=== PATIENT | female | born 1945 | race Caucasian/White ===

== ENCOUNTER → 2017-12-09 | Outpatient (CLI) | payer OTHER ==
[~2017-12-09] MED LIST: ATV/1 PO; CHOL100010 PO; FLUOXETINE 20 MG PO; VALA1TAB PO
== END | disposition home or self-care (01) ==
LOC: C.LABSPEC 17:19
PROVIDERS: ATTEND Obstetrics & Gynecology
DX: R82.90 Unspecified abnormal findings in urine (principal)

== ENCOUNTER 2023-09-12 15:38 | Inpatient (IN) ==
--- OUTSIDE RECORDS SUMMARY | 2023-09-12 15:46 | External Medical Summary | Summary of Care ---
Author Name Unknown Organization [facility] Address [address] [place] [address] Phone [phone] Care Team Providers Care Non Clinical Advisor Name Role Phone Radha Infante MD Primary Care Prov ider Reason for Visit * Reason Onset Date Comments Appointment 08/29/2023 Return in about 4 weeks (around 09/26/2023) for Return with AP, Return with Physician. AND MRI - [place] Encounter Details Date Type Department Care Team (Late st Contact Info) Description 08/29/2023 Telephone Family [address] [phone] Radha Infante MD [address] [place] [address] [place] [phone] Appointment (Return in about 4 weeks (arou... Allergies Active Allergy Reactions Criticality Noted Date Comments Lorazepam 02/10/2016 Went off too quick and caused pt to go to ED Sertraline 11/27/2001 rash documented as of this encounter (statuses as of 08/30/2023) Medications Medication Sig Dispensed Refills Start Date End Date Status Cholecalciferol (VITAMIN D) 50 MCG (1999 UT) Tablet Take 2,000 Units by mouth daily. 0 Active hydrOXYzine HCl 25 MG Oral TabletIndications:An xiety attack Take one every 6 hours as needed for panic 40 Tablet 2 12/21/2022 Active valACYclovir HCl 1 GM Oral Tablet (Valtrex)Indications :HSV-2 (herpes simplex virus 2) infection Take 1 Tablet by mouth in the morning. 30 Tablet 5 12/21/2022 Active FLUoxetine HCl 20 MG Oral Capsule (PROzac)Indications: Adjustment disorder with depressed mood Take 1 capsule by mouth in the morning 90 Capsule 1 07/14/2023 Active Baclofen 10 MG Oral Tablet (Lioresal)Indication s:Back pain of lumbar region with sciatica Take 1 Tablet by mouth at bedtime as needed for Headache. 10 Tablet 0 08/29/2023 Active documented as of this encounter (statuses as of 08/30/2023) Active Problems Problem Noted Date Diagnosed Date CKD (chronic kidney disease), stage II Overview: EGFR 62 Ganglion cyst of dorsum of left wrist 01/03/2019 Atopic neurodermatitis 10/09/2010 BMI 29.0-29.9,adult 07/14/2009 Overview: 174 Vitamin D deficiency 03/25/2009 Overview: Vitamin D 22.5 Senile osteoporosis 12/05/2008 ADVANCE DIRECTIVE INFORMATION 04/05/2006 Overview: No, Advance Directive brochure given to patient. Mixed dyslipidemia 02/12/2005 Overview: chol 232,hdl 53, ldl 154, trig 126 ADJ DISORDER W/DEPRES MOOD 02/08/2005 Mitral valve disorder 02/08/2005 Sensorineural hearing loss Rosacea HSV-2 (herpes simplex virus 2) infection Acquired hypothyroidism Chronic reflux esophagitis documented as of this encounter (statuses as of 08/30/2023) Resolved Problems Problem Noted Date Diagnosed Date Resolved Date Dermatitis 08/15/2012 09/25/2015 History of tobacco use 01/18/201105/23 NONSPECIF SKIN ERUPT NEC 04/03/201012/2015 PRURITIC DISORDER NOS 04/03/20102015 Dyslipidemia, goal to be determined 04/02/2009 01/18/2011 Overview: Per Lipid Taxonomy. chol 232,hdl 53, ldl 154, trig 126 Dermatitis 04/16/2008 04/03/2010 Mixed dyslipidemia 02/12/2005 9 Overview: Per Lipid Taxonomy. chol 232,hdl 53, ldl 154, trig 126 Dyslipidemia, goal to be determined 02/08/2005 07/09/2008 Tobacco use disorder 04/19/2003 011 Obesity, BMI not known 07/14 Overview: Per Obesity Taxonomy Hematuria, microscopic 05/23 Herpes simplex without menti on of complication 06/24/2011 documented as of this encounter (statuses as of 08/30/2023) Immunizations Name Administration Dates Next Due COVID-19 mRNA, LNP-s, No Pre serve, 2-Dose Series ([employer]) 09/11/2020,08/21/2020 documented as of this encounter Social History Tobacco Use Types Packs/Day Years Used Date Smoking Tobacco: Former Cigarettes 0.5 48.3 0 09/13/1968 - 12/17/2016 Smokeless Tobacco: Never Alcohol Use Standard Drinks/Week Comments Yes 0 (1 standard drink = 0.6 oz pur e alcohol) on occasion PHQ-2 Answer Date Recorded PHQ-2 Score -1 01/06/2020 Sex and Gender Information Value Date Recorded Sex Assigned at Not on file Gender Identity Not on file Sexual Orientation Not on file Job Start Date Occupation Industry Not on file Not on file Not on file documented as of this encounter Miscellaneous Notes * Telephone Encounter - Kavon Mclaughlin OSA - 08/30/2023 8:46 AM EDT MRI L SPINE, NO AUTH NEEDED. Pt is scheduled at [address] [place] in open unit on Tuesday09/05/2023 at 4:45 pm arrival, for a 5:00 scan. I also made pt's next appt w/ BLANQUITA. I called pt and left message on her vm to call me back. I faxed the order to [address] * Telephone Encounter - Kavon Mclaughlin OSA - 08/29/2023 5:27 PM EDT Pt declined to make f/u appt at time of check out. She thought Dr. JUARES wanted to see her after the MRI and she doesn't know when that is until I reach [place] documented in this encounter Plan of Treatment Upcoming Encounters Date Type Department Care Team (Late st Contact Info) Description 09/27/2023 10:20 AM EDT Office Visit Family Medicine [address] [place] [phone] Radha Infante MD [address] [place] [address] [place] [phone] 07/10/2024 1:30 PM EDT Imaging Radiology [address] [place] [address] Health Maintenance Due Date Last Done Comments DTaP,Tdap,and Td Vaccines (1 - Tdap) 09/13/1966 Zoster Vaccines (1 of 2) 09/13/1997 DXA Scan 12/05/2010 12/05/2008 Pneumococcal Vaccine: 65+ Years (1 of 1 - PCV) 09/13/2012 *BISPHONATE OR OTHER ACCEPTABLE MEDICATION NEEDED FOR OSTEOPOROSIS (REFER TO SMARTSET #1146) 04/19/2014 Depression Screening 01/01/2021 01/02/2020 COVID-19 Vaccine ( season) 2022 04/01/2021, 09/11/2020, 08/21/2020, Additional history exists Influenza Vaccine (FLU shot) (Season Ended) 2023 Lung Cancer Screening Completed 05/25/2018 VITAMIN D LEVEL ONCE IN A LIFETIME-USE SMARTSET# [id number] Completed 11/24/2020, 05/23/2018, 06/22/2013, Additional history exists GARDASIL-HPV IMMUNIZATION SERIES Aged Out No longer eligible based on patient's age to complete this topic Hepatitis B Aged Out No longer eligi ble based on patient's age to complete this topic MENINGOCOCCAL (MENACTRA/MENVEO) Aged Out No longer eligible based on patient's age to complete this topic documented as of this encounter Medical Devices Not on filedocumented as of this encounter Care Teams Non Clinical Advisor Relationship Specialty Start Date End Date Radha Infante MD [address] [place] [address] [place] [phone] PCP - General Family Medicine 08/29/23 08/29/23 documented as of this encounter
--- OUTSIDE RECORDS SUMMARY | 2023-09-12 15:46 | External Medical Summary | Summary of Care ---
Author Name Unknown Organization [facility] Address [address] [place] [address] Phone [phone] Care Team Providers Care Material Handling Crew Supervisor Name Role Phone Radha Infante MD Primary Care Prov ider Reason for Visit * Reason Onset Date Comments Appointment 08/29/2023 Return in about 4 weeks (around 09/26/2023) for Return with AP, Return with Physician. AND MRI - [place] Encounter Details Date Type Department Care Team (Late st Contact Info) Description 08/29/2023 Telephone Family [address] [phone] Radha Infante MD [address] [place] [address] [place] [phone] Appointment (Return in about [...] trig 126 Dermatitis 04/16/2008 04/03/2010 Mixed dyslipidemia 02/12/200504/02/ 9 Overview: Per Lipid Taxonomy. chol 232,hdl [...] mRNA, LNP-s, No Pre serve, 2-Dose Series ([employer]) 09/11/2020,08/21/2020 documented as of this encounter Social [...] know when that is until I reach [place] documented in this encounter Plan of Treatment Upcoming Encounters Date Type Department Care Team (Late st Contact Info) Description 07/10/2024 1:30 PM EDT Imaging Radiology [address] [place], [place] [address] Health Maintenance Due Date Last Done Comments [...] D LEVEL ONCE IN A LIFETIME-USE SMARTSET# [id number] Completed 11/24/2020, 05/23/2018, 06/22/2013, Additional history exists [...] filedocumented as of this encounter Care Teams Material Handling Crew Supervisor Relationship Specialty Start Date End Date Radha Infante MD [address] [place] [address] [place] [phone] PCP - General Family Medicine 08/29/23 08/29/23 documented as of this encounter
--- OUTSIDE RECORDS SUMMARY | 2023-09-12 15:46 | External Medical Summary | Summary of Care ---
Author Name Unknown Organization [facility] Address [address] [place] [address] Phone [phone] Care Team Providers Care Dough Panner Name Role Phone Priscila Infante MD Primary Care Prov ider Reason for Referral * Precert (Within 10 days (routine)) - Authorized Specialty Diagnoses / Procedures Referred By Contac t Referred To Contact Radiology Diagnoses Back pain of lumbar region with sciatica Procedures MRI L SPINE WO CONTRAST Priscila Infante MD [address] [place] [address] [place] [phone] Referral ID Status Reason Start Date Expiration Date V isits Requested Visits Authorized [id number] Authorized 08/30/2023 999 999 Reason for Visit * Reason Comments NEW PATIENT Acute Encounter Details Date Type Department Care Team ([facility] st Contact Info) Description 08/29/2023 4:00 PM EDT Office Visit Family Medicine [address] [place] [phone] Priscila Infante MD [address] [place] [address] [place] [phone] Back pain of lumbar region with sciatica*; Mixed dyslipidemia; Senile osteoporosis; Vitamin D deficiency; Acquired hypothyroidism; CKD (chronic kidney disease), stage II; Encounter for long-term (current) use of medications Allergies Active Allergy Reactions Criticality Noted Date Comments Lorazepam 02/10/2016 Went off too quick and caused pt to go to ED Sertraline 11/27/2001 rash documented as of this encounter (statuses as of 08/29/2023) Medications Medication Sig Dispensed Refills Start Date End Date Status Cholecalciferol (VITAMIN D) 50 MCG (2000 UT) Tablet Take 2,000 Units by mouth daily. 0 Active hydrOXYzine HCl 25 MG Oral TabletIndication s:Anxiety attack Take one every 6 hours as needed for panic 40 Tablet 2 12/21/2022 Active valACYclovir HCl 1 GM Oral Tablet (Valtrex)Indicat ions:HSV-2 (herpes simplex virus 2) infection Take 1 Tablet by mouth in the morning. 30 Tablet 5 12/21/2022 Active FLUoxetine HCl 20 MG Oral Capsule (PROzac)Indicati ons:Adjustment disorder with depressed mood Take 1 capsule by mouth in the morning 90 Capsule 1 07/14/2023 Active Baclofen 10 MG Oral Tablet (Lioresal)Indica tions:Back pain of lumbar region with sciatica Take 1 Tablet by mouth at bedtime as needed for Headache. 10 Tablet 0 08/29/2023 Active Promethazine-DM 6.25-15 MG/5ML Oral Syrup TAKE ONE TEASPOONFUL (5ML) BY MOUTH 4 TIMES DAILY NEEDED FOR COUGH 180 mL 0 02/22/2023 4 Discontinue d(Patient preference/ discontinua tion) documented as of this encounter (statuses as of 08/29/2023) Active Problems Problem Noted Date Diagnosed Date CKD (chronic kidney disease), stage II 1 Overview: EGFR 62 Ganglion cyst of dorsum [...] as of this encounter (statuses as of 08/29/2023) Resolved Problems Problem Noted Date Diagnosed Date [...] as of this encounter (statuses as of 08/29/2023) Immunizations Name Administration Dates Next Due COVID-19 mRNA, LNP-s, No Pre serve, 2-Dose Series ([employer]) 09/11/2020,08/21/2020 documented as of this encounter Social [...] on file documented as of this encounter Last Filed Vital Signs Vital Sign Reading Time Taken Comments Blood Pressure 128/74 08/29/2023 3:52 PM EDT Pulse 68 08/29/2023 3:52 PM EDT Temperature 37.3 C (99.1 F) 08/29/2023 3:52 PM ED T Respiratory Rate 18 08/29/2023 3:52 PM EDT Oxygen Saturation 93% 08/29/2023 3:52 PM EDT Inhaled Oxygen Concentration - - Weight 78.5 kg (173 lb) 08/29/2023 3:52 PM EDT Height 162.6 cm (5' 4") 08/29/2023 3:52 PM EDT Body Mass Index 29.7 08/29/2023 3:52 PM EDT documented in this encounter Progress Notes * David Dowd, Priscila Abrams MD - 08/29/2023 4:00 PM EDT Subjective Jennie Gil is a 77 year old female. Chief Complaint Patient presents with NEW PATIENT Acute HPI: Here today for acute visit for back pain. -Low back pain. Was seen at [facility] ER in June 2023 for back pain and had a CT scan done which showedbulging disk, per patient. Was advised to contact PCP about MRI and follow up. Today c/o pain in left lower back shooting to her left hip and down the leg. Also c/o pain and numbness in the left lower leg and foot. Denies loss of strength. Has had a couple urine incontinence episodes, but not persistent and denies numbness of the "saddle" region. Was given Medrol dosepak in the ER, helped minimally. -Dyslipidemia. Last LDL 140. ASCVD risk 19%. -Osteoporosis/Vit D def. Last Vit D 43. Last DEXA 2008, due for repeat. -Hypothyroid. TSH 3.9 on last labs. Prev: Due for vaccines, DEXA, labs. PMH: Patient Active Problem List Diagnosis Code ADJ DISORDER W/DEPRES MOOD F43.21 Mitral valve disorder I05.9 ADVANCE DIRECTIVE INFORMATION Senile osteoporosis M81.0 Sensorineural hearing loss H90.5 Vitamin D deficiency E55.9 BMI 29.0-29.9,adult Z68.29 Atopic neurodermatitis L20.81 Mixed dyslipidemia E78.2 Rosacea L71.9 HSV-2 (herpes simplex virus 2) infection B00.9 Acquired hypothyroidism E03.9 Ganglion cyst of dorsum of left wrist M67.432 Chronic reflux esophagitis K21.00 CKD (chronic kidney disease), stage II N18.2 Current Outpatient Medications Medication Sig Dispense Refill Cholecalciferol (VITAMIN D) 50 MCG (2000 UT) Tablet Take 2,000 Units by mouth daily. hydrOXYzine HCl 25 MG Oral Tablet Take one every 6 hours as needed for panic 40 Tablet 2 valACYclovir HCl 1 GM Oral Tablet (Valtrex) Take 1 Tablet by mouth in the morning. 30 Tablet 5 FLUoxetine HCl 20 MG Oral Capsule (PROzac) Take 1 capsule by mouth in the morning 90 Capsule 1 Baclofen 10 MG Oral Tablet (Lioresal) Take 1 Tablet by mouth at bedtime as needed for Headache. 10 Tablet 0 No current facility-administered medications for this visit. Review of patient's allergies indicates: Allergen Reactions Lorazepam Went off too quick and caused pt to go to ED Sertraline [Sertraline] rash Objective BP 128/74 | Pulse 68 | Temp 37.3 C (99.1 F) | Resp 18 | Ht 1.626 m (5' 4") | Wt 78.5 kg (173 lb) | SpO2 93% | BMI 29.70 kg/m | BSA 1.88 m Physical Exam Constitutional: Appearance: Normal appearance. HENT: Head: Normocephalic and atraumatic. Cardiovascular: Rate and Rhythm: Normal rate and regular rhythm. Pulses: Normal pulses. Heart sounds: Normal heart sounds. Pulmonary: Effort: Pulmonary effort is normal. Breath sounds: Normal breath sounds. Abdominal: General: Abdomen is flat. Bowel sounds are normal. Palpations: Abdomen is soft. Musculoskeletal: General: Tenderness present. Normal range of motion. Cervical back: Normal range of motion. Right lower leg: Edema present. Left lower leg: Edema present. Comments: + left SI joint area ttp Trace bilat LE edema Skin: General: Skin is warm. Neurological: General: No focal deficit present. Mental Status: She is alert and oriented to person, place, and time. Sensory: No sensory deficit. Motor: No weakness. Gait: Gait abnormal. Deep Tendon Reflexes: Reflexes normal. Psychiatric: Mood and Affect: Mood normal. Behavior: Behavior normal. ASSESSMENT/PLAN: Back pain of lumbar region with sciatica (Primary) - MRI L SPINE WO CONTRAST; Future; Expected date: 08/30/2023 - Baclofen 10 MG Oral Tablet (Lioresal); Take 1 Tablet by mouth at bedtime as needed for Headache. Mixed dyslipidemia - COMPREHENSIVE METABOLIC PANEL; Future; Expected date: 08/29/2023 - LIPID PANEL WITH DIRECT LDL IF TG IS HIGH; Future; Expected date: 08/29/2023 Senile osteoporosis Vitamin D deficiency - 25-HYDROXY VITAMIN D; Future; Expected date: 08/29/2023 Acquired hypothyroidism - TSH WITH FREE T4 IF INDICATED; Future; Expected date: 08/29/2023 CKD (chronic kidney disease), stage II Encounter for long-term (current) use of medications Follow Up: Return in about 4 weeks (around 09/26/2023) for Return with AP, Return with Physician. | For: Return with AP, Return with Physician | Check-out note: Please request ER records from June 2023 from [facility] Schedule MRI at [facility] open MRI States she was advised by the ER physician not to do PT until she had the MRI completed Will schedule MRI and treat based on results. Suspect internal derangement of the spinal cord. Priscila Patel MD documented in this encounter Nursing Notes * Sue Reyes RN - 08/29/2023 3:52 PM EDT Acute visit. (Former Dr Valladares) Pt having a lot of low back pain. Pt was seen in [facility] ER in June or July for Back pain, they want her to get an MRI to see if she has a herniated disc. Pt wants an Open MRI documented in this encounter Miscellaneous Notes * Addendum Note - Priscila Infante MD - 08/29/2023 4:32 PM EDT Addended by: PRISCILA PATEL on: 08/29/2023 04:32 PM Modules accepted: Orders documented in this encounter Plan of Treatment Upcoming Encounters Date Type Department Care Team (Late st Contact Info) Description 07/10/2024 1:30 PM EDT Imaging Radiology [address] [place] [phone] Scheduled Orders Name Type Priority Associated Diagnoses Orde r Schedule COMPREHENSIVE METABOLIC PANEL Lab Routine Mixed dyslipidemia Expected: 08/29/2023 (Approximate), Expires: 08/28/2024 LIPID PANEL WITH DIRECT LDL IF TG IS HIGH Lab Routine Mixed dyslipidemia Expected: 08/29/2023, Expires: 08/28/2024 25-HYDROXY VITAMIN D Lab Routine Vitamin D deficiency Expected: 08/29/2023 (Approximate), Expires: 08/28/2024 TSH WITH FREE T4 IF INDICATED Lab Routine Acquired hypothyroidism Expected: 08/29/2023 (Approximate), Expires: 08/28/2024 MRI L SPINE WO CONTRAST Medical Imaging Routine Back pain of lumbar region with sciatica Expected: 08/30/2023, Expires: 09/28/2024 Health Maintenance Due Date Last Done Comments [...] D LEVEL ONCE IN A LIFETIME-USE SMARTSET# [id number] Completed 11/24/2020, 05/23/2018, 06/22/2013, Additional history exists [...] Not on filedocumented as of this encounter Visit Diagnoses Diagnosis Back pain of lumbar region with sciatica- Primary Mixed dyslipidemia Mixed hyperlipidemia Senile osteoporosis Vitamin D deficiency Unspecified vitamin D deficiency Acquired hypothyroidism Unspecified hypothyroidism CKD (chronic kidney disease), stage II Chronic kidney disease, Stage II (mild) Encounter for long-term (current) use of medications Encounter for long-term (current) use of other medications documented in this encounter Care Teams Dough Panner Relationship Specialty Start Date End Date Priscila Infante MD [address] [place] [address] [place] [phone] PCP - General Family Medicine 08/29/23 08/29/23 documented as of this encounter
--- OUTSIDE RECORDS SUMMARY | 2023-09-12 15:46 | External Medical Summary | Summary of Care ---
Author Name Unknown Organization [facility] Address [address] [facility] [address] Phone [phone] Care Team Providers Care Senior Manager Quality Assurance Name Role Phone Unavailable Primary Care Provider Unavailabl e Encounter Details Date Type Department Care Team ([facility] st Contact Info) Description 09/01/2023 Orders Only PATIENT PORTAL DO NOT DELETE THIS DEPT USED BY [place] [phone] Allergies Active Allergy Reactions Criticality Noted Date Comments Lorazepam 02/10/2016 Went off too quick and caused pt to go to ED Sertraline 11/27/2001 rash documented as of this encounter (statuses as of 09/01/2023) Medications Medication Sig Dispensed Refills Start Date [...] as of this encounter (statuses as of 09/01/2023) Active Problems Problem Noted Date Diagnosed Date [...] as of this encounter (statuses as of 09/01/2023) Resolved Problems Problem Noted Date Diagnosed Date [...] as of this encounter (statuses as of 09/01/2023) Immunizations Name Administration Dates Next Due COVID-19 mRNA, LNP-s, No Pre serve, 2-Dose Series ([employer]) 09/11/2020,08/21/2020 documented as of this encounter Social [...] on file documented as of this encounter Plan of Treatment Upcoming Encounters Date Type Department Care Team (Late st Contact Info) Description 09/27/2023 10:20 AM EDT Office Visit Family Medicine [address] [place] [phone] Radha Infante MD [address] [place] [address] [place] [phone] 07/10/2024 1:30 PM EDT Imaging Radiology [address] [place] [address] Health Maintenance Due Date Last Done Comments [...] D LEVEL ONCE IN A LIFETIME-USE SMARTSET# [id number] Completed 11/24/2020, 05/23/2018, 06/22/2013, Additional history exists [...]
--- OUTSIDE RECORDS SUMMARY | 2023-09-12 15:46 | External Medical Summary ---
Author Name Unknown Address Unknown Organization K01[place] [place] [address] [place] [address] Laboratory Report Ordering Provider Test Date Status CHRISS FRANCOIS 09/02/2023 08:39:33 Final Observation Date Value Abnormality Reference (Units ) Status TSH 09/02/2023 08:39:33 2.35 0.27-4.20 (uIU/mL) Final Performing Location [facility] - [address] [place] [address]
--- OUTSIDE RECORDS SUMMARY | 2023-09-12 15:46 | External Medical Summary | Summary of Care ---
Author Name Unknown Organization [facility] Address [address] [facility] [place] [address] Phone [phone] Care Team Providers Care Dentofacial Orthopedics Dentist Name Role Phone Unavailable Primary Care Provider Unavailabl e Encounter Details Date Type Department Care Team (Late st Contact Info) Description 08/31/2023 Orders Only Family Medicine [address] [phone] Radha Infante MD [address] [place] [address] [place] [phone] Allergies Active Allergy Reactions Criticality Noted Date Comments Lorazepam 02/10/2016 Went off too quick and caused pt to go to ED Sertraline 11/27/2001 rash documented as of this encounter (statuses as of 08/31/2023) Medications Medication Sig Dispensed Refills Start Date [...] as of this encounter (statuses as of 08/31/2023) Active Problems Problem Noted Date Diagnosed Date [...] as of this encounter (statuses as of 08/31/2023) Resolved Problems Problem Noted Date Diagnosed Date [...] as of this encounter (statuses as of 08/31/2023) Immunizations Name Administration Dates Next Due COVID-19 mRNA, LNP-s, No Pre serve, 2-Dose Series ([employer]) 09/11/2020,08/21/2020 documented as of this encounter Social [...] 10:20 AM EDT Office Visit Family Medicine [address] [place] [phone] Radha Infante MD [address] [place] [address] [place] [phone] 07/10/2024 1:30 PM EDT Imaging Radiology [address] [place] [address] Pending Results Name Type Priority Associated Diagnoses Date /Time CT ABD/PELVIS W IV AND W ORAL CONTRAST Medical Imaging Routine 06/27/2023 XR CHEST 1 VIEW Medical Imaging Routine 06/16 CHEMISTRY-OUTSIDE Lab Routine 024 Health Maintenance Due Date Last Done Comments [...] D LEVEL ONCE IN A LIFETIME-USE SMARTSET# [id number] Completed 11/24/2020, 05/23/2018, 06/22/2013, Additional history exists [...]
--- OUTSIDE RECORDS SUMMARY | 2023-09-12 15:46 | External Medical Summary | Summary of Care ---
Author Name Unknown Organization [facility] Address [address] [facility] [place] [address] Phone [phone] Care Team Providers Care Mill Representative Name Role Phone Unavailable Primary Care Provider Unavailabl e Encounter Details Date Type Department Care Team (Late st Contact Info) Description 09/08/2023 Orders Only Family Medicine [address] [phone] Radha Infante MD [address] [place] [address] [place] [phone] Back pain of lumbar region with sciatica Allergies Active Allergy Reactions Criticality Noted Date Comments Lorazepam 02/10/2016 Went off too quick and caused pt to go to ED Sertraline 11/27/2001 rash documented as of this encounter (statuses as of 09/08/2023) Medications Medication Sig Dispensed Refills Start Date End Date Status Cholecalciferol (VITAMIN D) 50 MCG (1999) Tablet Take 2,000 Units by mouth daily. Active hydrOXYzine HCl 25 MG Oral TabletIndications:An [...] bedtime as needed for Headache. 10 Tablet 08/29/2023 Active Atorvastatin Calcium 20 MG Oral Tablet (Lipitor) Take 1 Tablet by mouth in the morning. 90 Tablet 3 09/05/2023 Active documented as of this encounter (statuses as of 09/08/2023) Active Problems Problem Noted Date Diagnosed Date [...] as of this encounter (statuses as of 09/08/2023) Resolved Problems Problem Noted Date Diagnosed Date [...] as of this encounter (statuses as of 09/08/2023) Immunizations Name Administration Dates Next Due COVID-19 mRNA, LNP-s, No Pre serve, 2-Dose Series ([employer]) 09/11/2020,08/21/2020 documented as of this encounter Social [...] 10:20 AM EDT Office Visit Family Medicine [address] [place] [phone] Radha Infante MD [address] [place] [address] [place] [address] 07/10/2024 1:30 PM EDT Imaging Radiology [address] [place] [address] Health Maintenance Due Date Last Done Comments [...] D LEVEL ONCE IN A LIFETIME-USE SMARTSET# [id number] Completed 09/02/2023, 11/24/2020, 05/23/2018, Additional history exists GARDASIL-HPV IMMUNIZATION SERIES Aged [...] Not on filedocumented as of this encounter Procedures Procedure Name Priority Date/Time Associated Diagnosis Comments MRI L SPINE WO CONTRAST Routine 09/05/2023 Back pain of lumbar region with sciatica documented in this encounter Results * MRI L SPINE WO CONTRAST (09/05/2023) Anatomical Region Laterality Modality Vertebra, Lspine Other 09/05/2023 Radha Dowd MD RAD MRI-MR A documented in this encounter Visit Diagnoses Diagnosis Back pain of lumbar region with sciatica documented in this encounter
--- OUTSIDE RECORDS SUMMARY | 2023-09-12 15:46 | External Medical Summary | Summary of Care ---
Author Name Unknown Organization [facility] Address [address] [place] [address] Phone [phone] Care Team Providers Care Electronic News Gathering Editor Name Role Phone Priscila Infante MD Primary Care Prov ider Reason for Referral * Precert (Within 10 days (routine)) - Authorized Specialty Diagnoses / Procedures Referred By Contac t Referred To Contact Radiology Diagnoses Back pain of lumbar region with sciatica Procedures MRI L SPINE WO CONTRAST Priscila Infante MD [address] [place] [address] [place] [id number] Referral ID Status Reason Start Date Expiration Date V isits Requested Visits Authorized [id number] Authorized 08/30/2023 999 999 Reason for Visit * Reason Comments NEW PATIENT Acute Encounter Details Date Type Department Care Team ([facility] st Contact Info) Description 08/29/2023 4:00 PM EDT Office Visit Family Medicine [address] [place] [phone] Priscila Infante MD [address] [place] [address] [place] [phone] Back pain of lumbar region with sciatica*; [...] mRNA, LNP-s, No Pre serve, 2-Dose Series ([employer]) 09/11/2020,08/21/2020 documented as of this encounter Social [...] pain. -Low back pain. Was seen at [facility] ER in June 2023 for back pain [...] request ER records from June 2023 from [facility] Schedule MRI at [address] [...] low back pain. Pt was seen in [facility] ER in June or July for Back [...] Description 07/10/2024 1:30 PM EDT Imaging Radiology [address] [place] [address] Scheduled Orders Name Type Priority Associated Diagnoses [...] D LEVEL ONCE IN A LIFETIME-USE SMARTSET# [id number] Completed 11/24/2020, 05/23/2018, 06/22/2013, Additional history exists [...] medications documented in this encounter Care Teams Electronic News Gathering Editor Relationship Specialty Start Date End Date Priscila Infante MD [address] [place] [address] [place] [address] PCP - General Family Medicine 08/29/23 08/29/23 documented as of this encounter
--- OUTSIDE RECORDS SUMMARY | 2023-09-12 15:46 | External Medical Summary ---
Author Name Unknown Address Unknown Organization [id number]:LABORATORY [facility] [place] - [address] [facility] [address] Laboratory Report Ordering Provider Test Date Status CHRISS FRANCOIS 09/02/2023 08:39:33 Final Observation Date Value Abnormality Reference (Units ) Status BUN 09/02/2023 08:39:33 11 6-20 (mg/dL) Final Creatinine 09/02/2023 08:39:33 0.8 0.5-1.0 (mg/dL) Final Glomerular filtration rate/1.73 sq M.predicted [Volume Rate/Area] in Serum, Plasma or Blood by Creatinine-based formula (CKD-EPI) 09/02/2023 08:39:33 80 >=60 (mL/min) Final eGFR is calculated based on the CKD-EPI 2020 equation Sodium 09/02/2023 08:39:33 142 135-146 (m mol/L) Final Potassium 09/02/2023 08:39:33 4.3 3.5-5.1 (m mol/L) Final Cl 09/02/2023 08:39:33 102 98-107 (mm ol/L) Final CO2 09/02/2023 08:39:33 27 22-32 (mmo l/L) Final Anion gap 09/02/2023 08:39:33 13 7-15 (mmol /L) Final Glucose 09/02/2023 08:39:33 111 70-120 (mg /dL) Final Albumin 09/02/2023 08:39:33 4.6 3.8-5.0 (g /dL) Final AST (Aspartate aminotransferase) 09/02/2023 08:39:33 19 10-35 (U/L) Fin al Alk Phos 09/02/2023 08:39:33 113 35-130 (U/ L) Final Bilirubin, Total 09/02/2023 08:39:33 0.4 <=1 .2 (mg/dL) Final Calcium 09/02/2023 08:39:33 10.3 Above high normal 8. 4-10.2 (mg/dL) Final Protein 09/02/2023 08:39:33 7.0 6.0-8.3 (g /dL) Final ALT (Alanine aminotransferase) 09/02/2023 08:39:33 19 10-35 (U/L) Kenrick lizama Performing Location LABORATORY [facility] [place] - [address] [facility] [address]
--- OUTSIDE RECORDS SUMMARY | 2023-09-12 15:46 | External Medical Summary | Summary of Care ---
Author Name Unknown Organization [facility] Address [address] [facility] [place] [address] Phone [phone] Care Team Providers Care Account Support Manager Name Role Phone Unavailable Primary Care Provider Unavailabl e Reason for Visit * Reason Comments Outpatient Testing Encounter Details Date Type Department Care Team ([facility] st Contact Info) Description 09/02/2023 9:00 AM EDT Laboratory Laboratory [address] [place] [phone] [address] [place] [address] Mixed dyslipidemia; Vitamin D deficiency; Acquired hypothyroidism Allergies Active Allergy Reactions Criticality Noted Date Comments Lorazepam 02/10/2016 Went off too quick and caused pt to go to ED Sertraline 11/27/2001 rash documented as of this encounter (statuses as of 09/02/2023) Medications Medication Sig Dispensed Refills Start Date [...] as of this encounter (statuses as of 09/02/2023) Active Problems Problem Noted Date Diagnosed Date [...] as of this encounter (statuses as of 09/02/2023) Resolved Problems Problem Noted Date Diagnosed Date [...] as of this encounter (statuses as of 09/02/2023) Immunizations Name Administration Dates Next Due COVID-19 mRNA, LNP-s, No Pre serve, 2-Dose Series (DataPop) 09/11/2020,08/21/2020 documented as of this encounter Social [...] 10:20 AM EDT Office Visit Family Medicine [address] [place] [phone] Radha Infante MD [address] [place] [address] [place] [phone] 07/10/2024 1:30 PM EDT Imaging Radiology [address] [place] [address] Pending Results Name Type Priority Associated Diagnoses Date /Time COMPREHENSIVE METABOLIC PANEL Lab Routine Mixed dyslipidemia 09/02/2023 8:39 AM EDT LIPID PANEL WITH DIRECT LDL IF TG IS HIGH Lab Routine Mixed dyslipidemia 09/02/2023 8:39 AM EDT 25-HYDROXY VITAMIN D Lab Routine Vitamin D deficiency 09/02/2023 8:39 AM EDT TSH WITH FREE T4 IF INDICATED Lab Routine Acquired hypothyroidism 09/02/2023 8:39 AM EDT Health Maintenance Due Date Last Done Comments [...] D LEVEL ONCE IN A LIFETIME-USE SMARTSET# [id number] Completed 11/24/2020, 05/23/2018, 06/22/2013, Additional history exists [...] as of this encounter Visit Diagnoses Diagnosis Mixed dyslipidemia Mixed hyperlipidemia Vitamin D deficiency Unspecified vitamin D deficiency Acquired hypothyroidism Unspecified hypothyroidism documented in this encounter
--- OUTSIDE RECORDS SUMMARY | 2023-09-12 15:46 | External Medical Summary | Summary of Care ---
Author Name Unknown Organization [facility] Address [address] [place] [address] Phone [phone] Care Team Providers Care Facilities Maintenance Engineer Name Role Phone Radha Infante MD Primary Care Prov ider Reason for Visit * Reason Onset Date Comments Appointment 08/29/2023 Return in about 4 weeks (around 09/26/2023) for Return with AP, Return with Physician. AND MRI - [place] Encounter Details Date Type Department Care Team (Late st Contact Info) Description 08/29/2023 Telephone Family [address] [phone] Radha Infante MD [address] [place] [address] [place] [phone] Appointment (Return in about [...] mRNA, LNP-s, No Pre serve, 2-Dose Series ([facility]) 09/11/2020,08/21/2020 documented as of this encounter Social [...] Telephone Encounter - Kavon Mclaughlin OSA - 08/31/2023 10:29 AM EDT I spoke to Jennie, she is aware. She has the ph # to call to change if needed. * Telephone Encounter - Kavon Mclaughlin OSA - 08/30/2023 8:46 AM EDT MRI L SPINE, NO AUTH NEEDED. Pt is scheduled at [address] in open unit on Tuesday09/05/2023 at 4:45 pm arrival, for a 5:00 scan. I also made pt's next appt w/ KFCristi. I called pt and left message on her vm to call me back. I faxed the order to 1 * Telephone Encounter - Kavon Mclaughlin OSA - 08/29/2023 5:27 PM EDT Pt declined to make f/u appt at time of check out. She thought Dr. JUARES wanted to see her after the MRI and she doesn't know when that is until I reach [place] documented in this encounter Plan of Treatment Upcoming Encounters Date Type Department Care Team (Late st Contact Info) Description 09/27/2023 10:20 AM EDT Office Visit Family Medicine [address] [place] [phone] Radha Infante MD [address] [place] [address] [place] [address] 07/10/2024 1:30 PM EDT Imaging Radiology [address] [place] [address] Health Maintenance Due Date Last Done Comments [...] D LEVEL ONCE IN A LIFETIME-USE SMARTSET# [id number] Completed 11/24/2020, 05/23/2018, 06/22/2013, Additional history exists [...] filedocumented as of this encounter Care Teams Facilities Maintenance Engineer Relationship Specialty Start Date End Date Radha Infante MD [address] [place] [address] [place] [phone] PCP - General Family Medicine 08/29/23 08/29/23 documented as of this encounter"
--- OUTSIDE RECORDS SUMMARY | 2023-09-12 15:46 | External Medical Summary | Summary of Care ---
Author Name Unknown Organization [facility] Address [address] [place] [address] Phone [phone] Care Team Providers Care Toy Designer Name Role Phone Radha Infante MD Primary Care Prov ider Encounter Details Date Type Department Care Team ([facility] st Contact Info) Description 06/27/2023 Result Scan Unspecified Department <No scans attached> Allergies Active Allergy Reactions Criticality Noted Date [...] 0 Active hydrOXYzine HCl 25 MG Oral TabletIndications:Anx iety attack Take one every 6 hours as needed for panic 40 Tablet 2 12/21/2022 Active valACYclovir HCl 1 GM Oral Tablet (Valtrex)Indications: HSV-2 (herpes simplex virus 2) infection Take 1 Tablet by mouth in the morning. 30 Tablet 5 12/21/2022 Active documented as of this encounter (statuses [...] mRNA, LNP-s, No Pre serve, 2-Dose Series ([employer]) 09/11/2020,08/21/2020 documented as of this encounter Social [...] 10:20 AM EDT Office Visit Family Medicine [address] [place] [phone] Radha Infante MD [address] [place] [address] [place] [address] 07/10/2024 1:30 PM EDT Imaging Radiology [address] [place] [address] Health Maintenance Due Date Last Done Comments [...] D LEVEL ONCE IN A LIFETIME-USE SMARTSET# [id number] Completed 11/24/2020, 05/23/2018, 06/22/2013, Additional history exists [...] Procedure Name Priority Date/Time Associated Diagnosis Comments OUTSIDE LAB RESULTS 06/27/2023 RADIOLOGY SCANNED RESULT 06/27/2023 documented in this encounter Results * RADIOLOGY SCANNED RESULT (06/27/2023) 06/27/2023 No Physician Data Unknown DIAGNOSTIC RAD IOLOGY SERVICES * OUTSIDE LAB RESULTS (06/27/2023) 06/27/2023 No Physician Data Unknown LABORATORY documented in this encounter Care Teams Toy Designer Relationship Specialty Start Date End Date Rdaha Infante MD [address] [place] [address] [place] [address] PCP - General Family Medicine 08/29/23 08/29/23 documented as of this encounter
--- OUTSIDE RECORDS SUMMARY | 2023-09-12 15:46 | External Medical Summary ---
Author Name Unknown Address Unknown Organization [id number]:LABORATORY [facility] - [address] [address] Laboratory Report Ordering Provider Test Date Status CHRSIS FRANCOIS 09/02/2023 08:39:33 Final Deficient: <20 ng/mL
Ins ufficient: 20-29 ng/mL
Recommended/Optimum:30-50 ng/mL

Vitamin D intoxication is rare. If suspicious of Vitamin D toxicity, evaluation of serum Calcium and PTH is recommended. Observation Date Value Abnormality Reference (Units ) Status 25-OH Vitamin D total 09/02/2023 08:39:33 41 >19 (ng/mL) Final Performing Location LABORATORY [facility] - [address] [address]
--- OUTSIDE RECORDS SUMMARY | 2023-09-12 15:46 | External Medical Summary ---
Author Name Unknown Address Unknown Organization [id number]:LABORATORY [facility] [place] - [address] [facility] [address] Laboratory Report Ordering Provider Test Date Status CHRISS FRANCOIS 09/02/2023 08:39:33 Final Observation Date Value Abnormality Reference (Units ) Status Triglyceride 09/02/2023 08:39:33 108 <=174 ( mg/dL) Final Triglyceride Reference Range s (mg/dL):
<150 Acceptable
150-174 Borderline high
175-499 High
>=500 Very high Cholesterol 09/02/2023 08:39:33 255 Above high normal <200 (mg/dL) Final Total Cholesterol Reference Ranges (mg/dL):
<200 Desirable
200-239 Borderline high
>=240 High HDL 09/02/2023 08:39:33 56 >49 (mg/dL ) Final HDL Cholesterol Reference Ra nges (mg/dL):
>=60 High (Desirable)
<50 Low (Undesirable) For Females
<40 Low (Undesirable) For Males NON-HDL CHOLESTEROL 09/02/2023 08:39:33 199 Above high normal <=159 (mg/dL) Final Non-HDL Cholesterol Referenc e Range (mg/dL):
<100 Target level for high risk ASCVD patient
<130 Optimal for general population
130-159 Near optimal for general population
160-189 Borderline High
190-219 High
>=220 Very High LDL, (calculated) 09/02/2023 08:39:33 177 Above high n ormal <=129 (mg/dL) Final LDL Cholesterol Reference Ra nges (mg/dL):
<70 Target level for high risk ASCVD patient
<100 Optimal for general population
100-129 Near optimal for general population
130-159 Borderline high
160-189 High
>=190 Very high Performing Location LABORATORY [facility] [place] - [address] [facility] [address]
--- OUTSIDE RECORDS SUMMARY | 2023-09-12 15:46 | External Medical Summary | Summary of Care ---
Author Name Unknown Organization [facility] Address [address] [place] [address] Phone [phone] Care Team Providers Care Varnish Melter Name Role Phone Priscila Infante MD Primary Care Prov ider Reason for Referral * Precert (Within 10 days (routine)) - Authorized Specialty Diagnoses / Procedures Referred By Contac t Referred To Contact Radiology Diagnoses Back pain of lumbar region with sciatica Procedures MRI L SPINE WO CONTRAST Priscila Infante MD [address] [place] [address] [place] [id number] Referral ID Status Reason Start Date Expiration Date V isits Requested Visits Authorized [id number] Authorized 08/30/2023 999 999 Reason for Visit * Reason Comments NEW PATIENT Acute Encounter Details Date Type Department Care Team ([facility] st Contact Info) Description 08/29/2023 4:00 PM EDT Office Visit Family Medicine [address] [place] [phone] Priscila Infante MD [address] [place] [address] [place] [phone] Back pain of lumbar region with sciatica*; Mixed dyslipidemia; Senile osteoporosis; Vitamin D deficiency; Acquired hypothyroidism; CKD (chronic kidney disease), stage II; Encounter for long-term (current) use of medications Allergies Active Allergy Reactions Criticality Noted Date Comments Lorazepam 02/10/2016 Went off too quick and caused pt to go to ED Sertraline 11/27/2001 rash documented as of this encounter (statuses as of 09/05/2023) Medications Medication Sig Dispensed Refills Start Date End Date Status Cholecalciferol (VITAMIN D) 50 MCG (2000 UT) Tablet Take 2,000 Units by mouth daily. Active hydrOXYzine HCl 25 MG Oral TabletIndication [...] the morning. 90 Tablet 3 09/05/2023 Active Promethazine-DM 6.25-15 MG/5ML Oral Syrup TAKE ONE TEASPOONFUL (5ML) BY MOUTH 4 TIMES DAILY NEEDED FOR COUGH 180 mL 02/22/2023 4 Discontinue d(Patient preference/ discontinua tion) documented as of this encounter (statuses as of 09/05/2023) Active Problems Problem Noted Date Diagnosed Date [...] as of this encounter (statuses as of 09/05/2023) Resolved Problems Problem Noted Date Diagnosed Date Resolved Date Dermatitis 08/15/2012 09/25/2015 History of tobacco use 01/18/201105/23 NONSPECIF SKIN ERUPT NEC 04/03/201012/2015 PRURITIC DISORDER NOS 04/03/20102015 Dyslipidemia, goal to be determined 04/02/2009 01/18/2011 Overview: Per Lipid Taxonomy. chol 232,hdl 53, ldl 154, trig 126 Dermatitis 04/16/2008 04/03/2010 Mixed dyslipidemia 02/12/2005 Overview: Per Lipid Taxonomy. chol 232,hdl 53, ldl 154, trig 126 Dyslipidemia, goal to be determined 02/08/2005 07/09/2008 Tobacco use disorder 04/19/2003 011 Obesity, BMI not known 07/14 Overview: Per Obesity Taxonomy Hematuria, microscopic 05/23 Herpes simplex without menti on of complication 06/24/2011 documented as of this encounter (statuses as of 09/05/2023) Immunizations Name Administration Dates Next Due COVID-19 mRNA, LNP-s, No Pre serve, 2-Dose Series ([employer] 09/11/2020,08/21/2020 documented as of this encounter Social [...] documented in this encounter Progress Notes * Priscila Infante MD - 08/29/2023 4:00 PM EDT Subjective Jennie Gil is a 77 year old female. Chief Complaint Patient presents with NEW PATIENT Acute HPI: Here today for acute visit for back pain. -Low back pain. Was seen at [facility] ER in June 2023 for back [...] Dispense Refill Cholecalciferol (VITAMIN D) 50 MCG (1999 UT) [...] request ER records from June 2023 from [facility] Schedule MRI at 611 open MRI [...] low back pain. Pt was seen in [facility] ER in June or July for Back pain, they want her to get an MRI to see if she has a herniated disc. Pt wants an Open MRI documented in this encounter Miscellaneous Notes * Addendum Note - Priscila Infante MD - 09/05/2023 8:21 AM EDT Addended by: PRISCILA PATEL on: 09/05/2023 08:21 AM Modules accepted: Orders * Addendum Note - Priscila Infante MD - 08/29/2023 4:32 PM EDT Addended by: PRISCILA PATEL on: 08/29/2023 04:32 PM Modules accepted: Orders documented in this encounter Plan of Treatment Upcoming Encounters Date Type Department Care Team (Late st Contact Info) Description 09/27/2023 10:20 AM EDT Office Visit Family Medicine [address] [place] [phone] Priscila Infante MD [address] [place] [address] [place] [phone] 07/10/2024 1:30 PM EDT Imaging Radiology [address] [place] [address] Scheduled Orders Name Type Priority Associated Diagnoses Orde r Schedule MRI L SPINE WO CONTRAST Medical Imaging [...] Depression Screening 01/01/2021 01/02/2020 COVID-19 Vaccine ( - season) 2022 04/01/2021, 09/11/2020, 08/21/2020, Additional history exists Influenza Vaccine (FLU shot) (Season Ended) 2023 Lung Cancer Screening Completed 05/25/2018 VITAMIN D LEVEL ONCE IN A LIFETIME-USE SMARTSET# [id number] Completed 09/02/2023, 11/24/2020, 05/23/2018, Additional history exists [...] Not on filedocumented as of this encounter Results * TSH WITH FREE T4 IF INDICATED (09/02/2023 8:39 AM EDT) TSH 2.35 0.27 - 4.20 uIU/mL 09/03/2023 1:37 AM EDT [facility] [place] Venous blood specimen / Unknown Venipuncture / Unknown 09/02/2023 8:39 AM EDT 09/02/2023 8:39 AM EDT Priscila Dowd MD LAB BLOOD ORDERABLES [facility] [address] [place] [address] * 25-HYDROXY VITAMIN D (09/02/2023 8:39 AM EDT) 25-Hydroxy Vitamin D 41 >19 ng/mL 09/03/2023 1:37 AM EDT [facility] [place] Venous blood specimen / Unknown Venipuncture / Unknown 09/02/2023 8:39 AM EDT 09/02/2023 8:39 AM EDT Narrative [facility] - 09/03/2023 1:37 AM EDT Deficient: <20 ng/mL Insufficient: 20-29 ng/mL Recommended/Optimum:30-50 ng/mL Vitamin D intoxication is rare. If suspicious of Vitamin D toxicity, evaluation of serum Calcium and PTH is recommended. Priscila Dowd MD LAB BLOOD ORDERABLES [facility] [address] [place] [address] * (ABNORMAL) LIPID PANEL WITH DIRECT LDL IF TG IS HIGH (09/02/2023 8:39 AM EDT) Triglycerides 108 <=174 mg/dL 09/03/2023 12:58 AM EDT [facility] Comment: Triglyceride Reference Ranges (mg/dL): <150 Acceptable 150-174 Borderline high 175-499 High >=500 Very high Cholesterol 255(H) <200 mg/dL 09/03/2023 12:58 AM EDT [facility] Comment: Total Cholesterol Reference Ranges (mg/dL): <200 Desirable 200-239 Borderline high >=240 High HDL Cholesterol 56 >49 mg/dL 12:58 AM EDT [facility] Comment: HDL Cholesterol Reference Ranges (mg/dL): >=60 High (Desirable) <50 Low (Undesirable) For Females <40 Low (Undesirable) For Males Non-HDL Cholesterol 199(H) <=159 mg/dL 09/03/2023 12:58 AM EDT [facility] Comment: Non-HDL Cholesterol Reference Range (mg/dL): <100 Target level for high risk ASCVD patient <130 Optimal for general population 130-159 Near optimal for general population 160-189 Borderline High 190-219 High >=220 Very High LDL Cholesterol 177(H) <=129 mg/dL 09/03/2023 12:58 AM EDT [facility] Comment: LDL Cholesterol Reference Ranges (mg/dL): <70 Target level for high risk ASCVD patient <100 Optimal for general population 100-129 Near optimal for general population 130-159 Borderline high 160-189 High >=190 Very high Blood Venous blood specimen / Unknown Venipuncture / Unknown 09/02/2023 8:39 AM EDT 09/02/2023 8:39 AM EDT Priscila Dowd MD LAB BLOOD ORDERABLES Performing Organization Address City/[facility]/ZIP Co de Phone Number [facility] [address] [place] [address] * (ABNORMAL) COMPREHENSIVE METABOLIC PANEL (09/02/2023 8:39 AM EDT) BUN 11 6 - 20 mg/dL 09/03/2023 12:58 AM EDT [facility] Creatinine 0.8 0.5 - 1.0 mg/dL 09/03/2023 12:58 AM EDT LABORATORY [facility] Estimated Glomerular Filtration Rate 80 >=60 mL/min 09/03/2023 12:58 AM EDT [facility] Comment:eGFR is calculated b ased on the CKD-EPI 2020 equation Sodium 142 135 - 146 mmol/L 09/03/2023 12:58 AM EDT [facility] Potassium 4.3 3.5 - 5.1 mmol/L 09/03/2023 12:58 AM EDT LABORATORY C Chloride 102 98 - 107 mmol/L 09/03/2023 12:58 AM EDT LABORATORY C CO2 27 22 - 32 mmol/L 09/03/2023 12:58 AM EDT LABORATORY C Anion Gap 13 7 - 15 mmol/L 09/03/2023 12:58 AM EDT LABORATORY C Glucose 111 70 - 120 mg/dL 09/03/2023 12:58 AM EDT [facility] Albumin 4.6 3.8 - 5.0 g/dL 09/03/2023 12:58 AM EDT LABORATORY C AST 19 10 - 35 U/L 09/03/2023 12:58 AM EDT LABORATORY C Alkaline Phosphatase 113 35 - 130 U/L 09/03/2023 12:58 AM EDT LABORATORY C Bilirubin, Total 0.4 <=1.2 mg/dL 09/03/2023 12:58 AM EDT [facility] Calcium 10.3(H) 8.4 - 10.2 mg/dL 09/03/2023 12:58 AM EDT [facility] Protein 7.0 6.0 - 8.3 g/dL 09/03/2023 12:58 AM EDT [facility] ALT 19 10 - 35 U/L 09/03/2023 12:58 AM EDT LABORATORY C Blood Venous blood specimen / Unknown Venipuncture / Unknown 09/02/2023 8:39 AM EDT 09/02/2023 8:39 AM EDT Priscila Aliza David Dowd MD LAB BLOOD ORDERABLES [facility] [address] [facility] [place] [phone] documented in this encounter Visit Diagnoses Diagnosis [...] medications documented in this encounter Care Teams Varnish Melter Relationship Specialty Start Date End Date Priscila Infante MD [address] [place] [address] [place] [phone] PCP - General Family Medicine 08/29/23 08/29/23 documented as of this encounter
--- OUTSIDE RECORDS SUMMARY | 2023-09-12 15:47 | External Medical Summary | Summary of Care ---
Author Name Unknown Organization [facility] Address [address] [place] [address] Phone [phone] Care Team Providers Care Electronic News Gathering Camera Person Name Role Phone Unavailable Primary Care Provider Unavailabl e Reason for Visit * Reason Comments Prolapse Uterus Cystocele Rectocele * Evaluate & Treat - Unlimited Visits (Within 10 days (routine)) - Authorized Specialty Diagnoses / Procedures Referred By Contac t Referred To Contact [employer] REPAIRMEN - Urogynecology / Gynecology Urology Diagnoses Genital prolapse Ariana Pitts MD [address] [address] Referral ID Status Reason Start Date Expiration Date Visits Requested Visits Authorized [id number] Authorized Specialty Services Required 08/17/2023 999 999 Encounter Details Date Type Department Care Team (Latest Contact Info) Description 08/29/2023 12:35 PM EDT Office Visit [facility]rogynecologchristiano Gu [address] [facility] [address] Marques Downing MD [address] [place] [address] Nurse Thomas Gu [address] [place] [address] Rectocele*; Vaginal vault prolapse, posthysterectomy Allergies Active Allergy Reactions Criticality Noted Date [...] 0 Active hydrOXYzine HCl 25 MG Oral TabletIndications: Anxiety attack Take one every 6 hours as needed for panic 40 Tablet 2 12/21/2022 Active valACYclovir HCl 1 GM Oral Tablet (Valtrex)Indicatio ns:HSV-2 (herpes simplex virus 2) infection Take 1 Tablet by mouth in the morning. 30 Tablet 5 12/21/2022 Active Promethazine-DM 6.25-15 MG/5ML Oral Syrup TAKE ONE TEASPOONFUL (5ML) BY MOUTH 4 TIMES DAILY NEEDED FOR COUGH 180 mL 0 02/22/2023 Active FLUoxetine HCl 20 MG Oral Capsule (PROzac)Indication s:Adjustment disorder with depressed mood Take 1 capsule by mouth in the morning 90 Capsule 1 07/14/2023 Active documented as of this encounter (statuses [...] mRNA, LNP-s, No Pre serve, 2-Dose Series ([employer]) 09/11/2020,08/21/2020 documented as of this encounter Social History Tobacco Use Types Packs/Day Years Used Date Smoking Tobacco: Former Cigarettes 0.5 48.3 0 09/13/1968 - 12/17/2016 Smokeless Tobacco: Never Tobacco Cessation:Counseling Given: Not Answered Alcohol Use Standard Drinks/Week Comments Yes 0 [...] Sign Reading Time Taken Comments Blood Pressure 142/66 08/29/2023 12:41 PM EDT Pulse - - Temperature - - Respiratory Rate - - Oxygen Saturation - - Inhaled Oxygen Concentration - - Weight 78.8 kg (173 lb 12.8 oz) 024 12:41 PM EDT Height 162.6 cm (5' 4") 08/29/2023 12:4 1 PM EDT Body Mass Index 29.83 08/29/2023 12:41 PM EDT documented in this encounter Progress Notes * Marques Downing MD - 08/29/2023 12:46 PM EDT Jennie Gli is a 77 year old female P 1 here for evaluation of prolapse. Referred by Ariana Pitts MD. Jennie Gil complains of feeling a bulge about a year ago. She denies any pain or bleeding associated with the bulge. She denies urinary incontinence with coughing or sneezing. She denies using pads.She denies urinary urge incontinence. However, she admits to awakening from her sleep incontinent on 3 occasions. She uses the restroom every 2-3 hours. She denies urgency. She doesn't always feel that she empties her bladder completely. She states that her urinary stream is no longer straight. Urinary: Leakage: 3 occasions of awakening with incontinence in her bed Has leakage 3 occasions Wears pads: no She has occasional sense of incomplete bladder emptying. Prior/current treatment include: none UTI: Denies UTI's in the past year. Voiding detail: Daytime frequency: every 2 hours Urgency no Nocturia:2-3 Hesitancy no Straining no Hematuria no Postvoid dribbling no Postvoid urgency no Manual reduction no Prolapse: She admits a palpable bulge. GI: Bowel habits: diarrhea and constipation, diarrhea triggered by certain foods and drinks She denies fecal incontinence. Gynecologic history: hysterectomy for uterine prolapse. Medical History: Patient Active Problem List Diagnosis Code ADJ [...] CKD (chronic kidney disease), stage II N18.2 Past Medical History: Diagnosis Date Acquired hypothyroidism Adjustment disorder with depressed mood Choledocholithiasis 07/20/2013 ERCP with basket retrieval Chronic reflux esophagitis CKD (chronic kidney disease), stage II 11/24/2020 EGFR 62 COVID-19 06/17/2022 Hematuria, microscopic 2001 HSV-2 (herpes simplex virus 2) infection Microscopic hematuria 02/10/2021 Mitral valve disorder Mixed dyslipidemia 02/12/2005 chol 232,hdl 53, ldl 154, trig 126 Need for hepatitis C screening test 07/01/2014 Negative Obesity, BMI not known Rosacea Senile osteoporosis 12/05/2008 high risk Sensorineural hearing loss Tobacco use disorder 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 as her primary care provider. Surgical History: Past Surgical History: Procedure Laterality Date CT HEAD/BRAIN W WO CONTRAST 05/06/2006 possible small peticheal hemorrhage in left internal capsule CTA CHEST NON-CORONARY W CONTRAST 05/25/2018 chronic lung disease, no PE CYSTOSCOPY 02/10/2021 Dr Gomez for microscopic hematuria, was normal ENDOSCOPY, ERCP, W/STONE REMOVAL 07/20/2013 ERCP sphincterotomy, 8 mm common bile duct stone removed HC BREAST ELEN SCREEN BILATERAL Bilateral 07/05/2023 scattered fibroglandular densities, category 1 repeat 1 year MRI, BRAIN WITH/WITHOUT CONTRAST N/A 12/03/2020 no acute changes, stable chronic microvascular changes in right frontal region LAPAROSCOPY; CHOLECYSTECTOMY 07/23/2013 MAMMOGRAM DIAGNOSTIC UNILATERAL Left 12/05/2012 left breast focal density 3 o'clock, probably benign, no sonogram findings, repeat in 6 months MAMMOGRAM SCREENING BILATERAL Bilateral 12/05/2008 categroy 1 normal MAMMOGRAM SCREENING BILATERAL Bilateral 10/26/2011 fibroglandular densities, category 1 normal MAMMOGRAM SCREENING BILATERAL Bilateral 12/04/2012 scattered fibroglandular densities, nodularity left breast, category 1 further studies needed. MAMMOGRAM SCREENING BILATERAL Bilateral 12/11/2013 scattered fibroglandular densities, category 1 normal MAMMOGRAM SCREENING BILATERAL Bilateral 12/13/2014 scattered fibroglandular densities, category 1 normal MAMMOGRAM SCREENING BILATERAL Bilateral 12/15/2015 scattered fibroglandular densities, multiple small roulds masses, stable, category 2 benign, repeat1 year. MAMMOGRAM SCREENING BILATERAL Bilateral 12/16/2017 scattered fibroglandular densities, category 2 MAMMOGRAM SCREENING BILATERAL Bilateral 12/19/2018 category 2 benign MAMMOGRAM SCREENING BILATERAL Bilateral 12/21/2019 scattered fibroglandular densities, category 2 repeat 1 year MAMMOGRAM SCREENING BILATERAL Bilateral 06/30/2021 scattered fibroglandular densities, category 1 repeat 1 year MAMMOGRAM SCREENING BILATERAL Bilateral 07/01/2022 scattered fibroglandular densities, category 1 repeat 1 year MOBILE DXA 12/05/2008 Lumbar T -2.9, Femur T -2.7, 17% fracture risk, 5.1% risk hip fracture, high TOTAL HYSTERECTOMY 2000 [facility], Dr Bello, possibly for prolapse US ABDOMEN LIMITED 07/19/2013 cholelithiasis, with cholecystitis and dilated CBD, suggestive of obstruction US RENAL 08/13/2008 normal OB History 1 Para 1 Term 1 AB Living SAB IAB Ectopic Multiple Live Births Weight of largest baby: 7 Vaginal deliveries: 1 C/S: 0 Allergies: Review of patient's allergies indicates: Allergen Reactions Lorazepam Went off too quick and caused pt to go to ED Sertraline [Sertraline] rash Active Medications: Current Outpatient Medications Medication Sig Dispense Refill Cholecalciferol (VITAMIN D) 50 MCG (2000 UT) Tablet Take 2,000 Units by mouth daily. FLUoxetine HCl 20 MG Oral Capsule (PROzac) Take 1 capsule by mouth in the morning 90 Capsule 1 hydrOXYzine HCl 25 MG Oral Tablet Take one every 6 hours as needed for panic 40 Tablet 2 valACYclovir HCl 1 GM Oral Tablet (Valtrex) Take 1 Tablet by mouth in the morning. 30 Tablet 5 Promethazine-DM 6.25-15 MG/5ML Oral Syrup TAKE ONE TEASPOONFUL (5ML) BY MOUTH 4 TIMES DAILY NEEDED FOR COUGH 180 mL 0 No current facility-administered medications for this visit. Social History: Social History Socioeconomic History Marital status: Tobacco Use Smoking status: Former Current packs/day: 0.00 Average packs/day: 0.5 packs/day for 48.3 years (24.1 ttl pk-yrs) Types: Cigarettes Start date: 09/13/1968 Quit date: 12/17/2016 Years since quittin.7 Smokeless tobacco: Never Substance and Sexual Activity Alcohol use: Yes Comment: on occasion Drug use: No Sexual activity: Yes Partners: Male control/protection: Surgical Social History Narrative [facility] INFORMATION ENVIRONMENTAL HISTORY: Type of Home: Two Story Type of Heating System: Oil and Forced air Air Conditioning: Yes Living room and Upstairs Basement: Unfinished, Dampness and Water Problems Home have cockroaches: No Irritants in the home: None Patient's bedroom location: Floor: first Type of sergei: Linoleum Beds: Number: 1 Type of beds: Mattress and Box spring Pillows: Number: 2 Type of pillows: Foam Bedroom contains: Minimal items Pets: 2 cat(s) Lives on a farm: No 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 Entered by: Ben Pino MD 04/03/2010 Family History: Family History Problem Relation Age of Onset Allergies Mother hives Asthma Grandfather (Maternal) Allergies Son Breast Cancer Aunt (Maternal) CONSTITUTIONAL ROS: No change in weight, No weakness and No fatigue NECK ROS: No lumps or masses, PULMONARY ROS: No recent change in breathing CARDIOVASCULAR ROS: No chest pain, No shortness of breath and No dyspnea on exertion BREAST ROS: denies GASTROINTESTINAL ROS: No abdominal pain,as per HPI GENITO-URINARY FEMALE ROS: As per HPI MSK/EXTREMITIES ROS: no joint pain no joint stiffness no back pain SKIN/INTEGUMENTARY ROS: No rash and No itching NEUROLOGICAL ROS: Normal balance No weakness PSYCHIATRIC ROS: no depression and no anxiety Organizational Effectiveness Director Documentation: Provider requested dietary aide Name of Organizational Effectiveness Director: Brook Guy Blood pressure 142/66, height 1.626 m (5' 4"), weight 78.8 kg (173 lb 12.8 oz). Blood pressure %vivian are not available for patients who are 18 years or older. Body mass index is 29.83 kg/m. EXAM: Well developed well nourished female in no apparent distress. Alert oriented x3 HEENT: NC AT HEART: Normal peripheral pulse, edema neg THYROID: no obvious neck mass LUNG: No increased respiratory effort ABDOMEN: Soft, NT, ND, no masses PELVIC EXAM: Ext. Gen: Normal external female genitalia, no vulvar lesions. Clitoris, labia, minor vestibular glands and urethral meatus appear normal. Urethra and bladder palpated non-tender with no masses and no expressible exudate. Vagina atrophic without lesions. Cervix: absent BIMANUAL EXAM: No adnexal masses or tenderness elicited. RETAIL SERVICE TECHNICIAN: neg Levator ani muscle strength 2. No tenderness elicited on palpation Rectovaginal exam: perianal area normal, anus normal, digital rectal exam deferred Aa -2 Ba -2 C -6 GH 3 PB 3 TVL 9 Ap 0 Bp 0 D The following data points/ labs were reviewed: Results for orders placed or performed in visit on 06/17/22 HEMOGLOBIN A1C Result Value Ref Range Hemoglobin A1C 5.5 4.0 - 5.6 % Estimated Average Glucose 111 <126 mg/dL SARS-COV-2 ANTIBODY Result Value Ref Range SARS-CoV-2 Antibody Positive (A) Negative D-DIMER Result Value Ref Range D-Dimer 0.52 (H) <0.50 ug/mL FEU BNP, NT-PRO Result Value Ref Range BNP, NT-Pro 191 <300 pg/mL TSH WITH FREE T4 IF INDICATED Result Value Ref Range TSH 3.96 0.27 - 4.20 uIU/mL PVR: 49 ml via bladder scan Records/ Imaging/ Results reviewed include: ONCOLOGY PATIENT NAVIGATOR and ER notes from [facility] Impression: This is a 77 year old with: Rectocele (Primary) Vaginal vault prolapse, posthysterectomy I reviewed the stage 2 posterior vaginal wall prolapse and stage 1 apical prolapse. I reviewed therapy options including expectant management, Kegel exercises/Physical therapy, pessary therapy, or surgical repair (posterior colporrhaphy, sacrospinous ligament suspension). I reviewedthe risks of surgery including infection, bleeding, injury, chronic pain, recurrence. All questions answered. She was concerned that prolapse could cause pain radiating from her back to her feet. I explained that prolapse does not cause that type of pain. More likely the pain is related to her backissues. She would like to manage her sciatic pain first, before pursuing surgery. She is not interested pessary therapy. Educational materials provided. She return once she is ready to pursue therapy. Marques Downing MD 08/29/2023 12:46 PM I spent a total of 45 minutes on the date of service in preparation, delivery, and documentation ofthe care provided to Jennie Gil excluding any time spent in the performance of separately billedservices. documented in this encounter Nursing Notes * Brook Guy, MED ASSIST - 08/29/2023 12:45 PM EDT Patient presents today for prolapse, can see and feel bulge. PVR - 49 Frequency - once every 1.5 hrs Nocturia - 2-3 hours Urgency - yes Urge incontinence - yes documented in this encounter Plan of Treatment Upcoming Encounters Date Type Department Care Team (Late st Contact Info) Description 08/29/2023 4:00 PM EDT Office Visit Family Medicine [address] [place] [phone] Radha Infante MD [address] [place] [address] [place] [phone] 07/10/2024 1:30 PM EDT Imaging Radiology [address] [place] [address] Scheduled Referrals Name Type Priority Associated Diagnoses Order Schedule UROGYNECOLOGY CLINIC REFERRAL OP (FEMALE ONLY) Referral Within 10 days (routine) Genital prolapse Ordered: 08/17/2023 Health Maintenance Due Date Last Done Comments [...] D LEVEL ONCE IN A LIFETIME-USE SMARTSET# [id number] Completed 11/24/2020, 05/23/2018, 06/22/2013, Additional history exists [...] as of this encounter Visit Diagnoses Diagnosis Rectocele- Primary Vaginal vault prolapse, posthysterectomy Prolapse of vaginal vault after hysterectomy documented in this encounter
--- OUTSIDE RECORDS SUMMARY | 2023-09-12 15:47 | External Medical Summary | Summary of Care ---
Author Name Unknown Organization [facility] Address [address] [place] [address] Phone [phone] Care Team Providers Care Lock Tender Name Role Phone Jose Valladares MD Primary Care Provider + [phone] Reason for Visit * Reason Onset Date Comments Order Request 07/04/2023 Encounter Details Date Type Department Care Team ([facility] st Contact Info) Description 07/04/2023 Telephone Family Medicine [address] [phone] Jose Valladares MD [address] [place] [address] [place] [address] Order Request Allergies Active Allergy Reactions Criticality Noted Date Comments Lorazepam 02/10/2016 Went off too quick and caused pt to go to ED Sertraline 11/27/2001 rash documented as of this encounter (statuses as of 08/23/2023) Medications Medication Sig Dispensed Refills Start Date [...] mouth in the morning 90 Capsule 1 12/21/2022 4 Discontinue d(Refill) documented as of this encounter (statuses as of 08/23/2023) Active Problems Problem Noted Date Diagnosed Date [...] as of this encounter (statuses as of 08/23/2023) Resolved Problems Problem Noted Date Diagnosed Date [...] as of this encounter (statuses as of 08/23/2023) Immunizations Name Administration Dates Next Due COVID-19 mRNA, LNP-s, No Pre serve, 2-Dose Series ([employer]) 09/11/2020,08/21/2020 documented as of this encounter Social [...] encounter Miscellaneous Notes * Telephone Encounter - Sue Reyes RN - 08/23/2023 10:05 AM EDT Phone is busy, I will send a [employer] message We can discuss at her appt 08/29/23. What Hospital was she in and when? * Telephone Encounter - Mary Doherty OSA - 08/17/2023 9:38 AM EDT Pt calling checking on the status of her request for an MRI as suggested by the ER with Dr. Camarena for a possible herniated disc and to rule out a mass. Pt is currently using a walker and is in severe pain. She is currently trying to take OTC medication for her pain. Please reach out to pt accordingly regarding the request. * Telephone Encounter - Daily Rao OSA - 07/04/2023 10:01 AM EDT Can someone please call this patient as she is requesting a MRI due to her being in ER. Thank you documented in this encounter Plan of Treatment Upcoming Encounters Date Type Department Care Team (Late st Contact Info) Description 08/29/2023 12:35 PM EDT Office Visit Urogynecology Denise Gu [address] [place] [address] Marques Downing MD [address] [place] [address] Nurse Thomas Gu [address] [place] [address] 08/29/2023 4:00 PM EDT Office Visit Family Medicine [address] [place] [phone] Radha Infante MD [address] [place] [address] [place] [address] 07/10/2024 1:30 PM EDT Imaging Radiology [address] [place] [address] Health Maintenance Due Date Last Done Comments DTaP,Tdap,and Td Vaccines (1 - Tdap) 09/13/1966 Zoster Vaccines (1 of 2) 09/13/1997 DXA Scan 12/05/2010 12/05/2008 Pneumococcal Vaccine: 65+ Years (1 of 1 - PCV) 09/13/2012 *BISPHONATE OR OTHER ACCEPTABLE MEDICATION NEEDED FOR OSTEOPOROSIS (REFER TO SMARTSET #1146) 04/19/2014 Depression Screening 01/01/2021 01/02/2020 COVID-19 Vaccine (2022-24 season) 2022 04/01/2021, 09/11/2020, 08/21/2020, Additional history exists Influenza Vaccine (FLU shot) (Season Ended) 2023 Lung Cancer Screening Completed 05/25/2018 VITAMIN D LEVEL ONCE IN A LIFETIME-USE SMARTSET# 00369 Completed 11/24/2020, 05/23/2018, 06/22/2013, Additional history exists [...] filedocumented as of this encounter Care Teams Lock Tender Relationship Specialty Start Date End Date Jose Valladares MD [address] [place] [address] [place] [address] PCP - General Family Medicine 07/04/23 08/22/23 documented as of this encounter
--- OUTSIDE RECORDS SUMMARY | 2023-09-12 15:47 | External Medical Summary | Summary of Care ---
Author Name Unknown Organization [facility] [address] [facility] [address] Phone [phone] Care Team Providers Care Supervisor Home Economics Name Role Phone Jose Valladares MD Primary Care Provider + [phone] Reason for Visit * Reason Onset Date Comments Order Request 07/04/2023 Encounter Details Date Type Department Care Team (Late st Contact Info) Description 07/04/2023 Telephone Family Medicine [address] [phone] Jose Valladares MD [address] [place], [place] [address] [address] Order Request Allergies Active Allergy Reactions Criticality Noted Date Comments Lorazepam 02/10/2016 Went off too quick and caused pt to go to ED Sertraline 11/27/2001 rash documented as of this encounter (statuses as of 08/17/2023) Medications Medication Sig Dispensed Refills Start Date [...] as of this encounter (statuses as of 08/17/2023) Active Problems Problem Noted Date Diagnosed Date [...] as of this encounter (statuses as of 08/17/2023) Resolved Problems Problem Noted Date Diagnosed Date [...] as of this encounter (statuses as of 08/17/2023) Immunizations Name Administration Dates Next Due COVID-19 mRNA, LNP-s, No Pre serve, 2-Dose Series ([employer]) 09/11/2020,08/21/2020 documented as of this encounter Social [...] encounter Miscellaneous Notes * Telephone Encounter - Mary Doherty OSA [...] Care Team (Late st Contact Info) Description 09/05/2023 8:00 AM EDT Office Visit Family Medicine [address] [place] [phone] Radha Infante MD [address] [place] [address] [place] [address] 07/10/2024 1:30 PM EDT Imaging Radiology [address] [place] [address] Health Maintenance Due Date Last Done Comments [...] D LEVEL ONCE IN A LIFETIME-USE SMARTSET# [id number] Completed 11/24/2020, 05/23/2018, 06/22/2013, Additional history exists [...] filedocumented as of this encounter Care Teams Supervisor Home Economics Relationship Specialty Start Date End Date Jose Valladares MD [address] [place] [address] [place] [address] PCP - General Family Medicine 07/04/23 documented as of this encounter
--- OUTSIDE RECORDS SUMMARY | 2023-09-12 15:47 | External Medical Summary | Summary of Care ---
Author Name Unknown Organization [facility] Address [address] [place] [address] Phone [phone] Care Team Providers Care Budget Specialist Name Role Phone Jose Valladares MD Primary Care Provider + [phone] Reason for Visit * Reason Onset Date Comments Order Request 07/04/2023 Encounter Details Date Type Department Care Team ([facility] st Contact Info) Description 07/04/2023 Telephone Family Medicine [address] [phone] Jose Valladares MD [address] [place] [address] [place] [address] Order Request Allergies Active Allergy Reactions Criticality Noted Date Comments Lorazepam 02/10/2016 Went off too quick and caused pt to go to ED Sertraline 11/27/2001 rash documented as of this encounter (statuses as of 08/25/2023) Medications Medication Sig Dispensed Refills Start Date [...] as of this encounter (statuses as of 08/25/2023) Active Problems Problem Noted Date Diagnosed Date [...] as of this encounter (statuses as of 08/25/2023) Resolved Problems Problem Noted Date Diagnosed Date [...] as of this encounter (statuses as of 08/25/2023) Immunizations Name Administration Dates Next Due COVID-19 mRNA, LNP-s, No Pre serve, 2-Dose Series ([employer]) 09/11/2020,08/21/2020 documented as of this encounter Social [...] Telephone Encounter - Sue Reyes RN - 08/25/2023 2:57 PM EDT See my g, no records viewable for this date for [facility] * Telephone Encounter - Sue Reyes RN - 08/23/2023 10:05 AM EDT Phone is busy, I will send a My G message We can discuss at her appt [...] Denise Gu [address] [place] [address] Marques Downing MD [address] [place] [address] Nurse Thomas Gu [address] [place] [address] 08/29/2023 4:00 PM EDT Office Visit Family Medicine [address] [place] [phone] Radha Infante MD [address] [place] [address] [place] [address] 07/10/2024 1:30 PM EDT Imaging Radiology [address] [place] [address] Health Maintenance Due Date Last Done Comments [...] D LEVEL ONCE IN A LIFETIME-USE SMARTSET# [id number] Completed 11/24/2020, 05/23/2018, 06/22/2013, Additional history exists [...] filedocumented as of this encounter Care Teams Budget Specialist Relationship Specialty Start Date End Date Jose Valladares MD [address] [place] [address] [place] [address] PCP - General Family Medicine 07/04/23 08/22/23 documented as of this encounter
--- OUTSIDE RECORDS SUMMARY | 2023-09-12 15:47 | External Medical Summary | Summary of Care ---
Author Name Unknown Organization [facility] Address [address] [place] [address] Phone [phone] Care Team Providers Care [place] Supervisor Name Role Phone Unavailable Primary Care Provider Unavailabl e Reason for Visit * Reason Comments Prolapse Uterus Cystocele Rectocele * Evaluate & Treat - Unlimited Visits (Within 10 days (routine)) - Authorized Specialty Diagnoses / Procedures Referred By Contac t Referred To Contact FIRE TENDER - Urogynecology / Gynecology Urology Diagnoses Genital prolapse Ariana Pitts MD [address] [address] Referral ID Status Reason Start Date Expiration Date Visits Requested Visits Authorized [id number] Authorized Specialty Services Required 08/17/[phone] Encounter Details Date Type Department Care Team (Latest Contact Info) Description 08/29/2023 12:35 PM EDT Office Visit Urogynecologchristiano Gu [address] [facility] [address] Marques Downing MD [address] [place] [address] Nurse Thomas Gu [address] [place] [address] Rectocele*; Vaginal vault prolapse, posthysterectomy Allergies Active [...] mRNA, LNP-s, No Pre serve, 2-Dose Series ([employer]) 09/11/2020,08/21/2020 documented as of this encounter Social [...] MD - 08/29/2023 12:46 PM EDT Jennie Gil is a 77 year old female P [...] risk hip fracture, high TOTAL HYSTERECTOMY [address] [facility], Dr Bello, possibly for prolapse US [...] PSYCHIATRIC ROS: no depression and no anxiety Double End Sewer Documentation: Provider requested flexible nanny Name of Double End Sewer: Brook Guy Blood pressure 142/66, height 1.626 [...] EXAM: No adnexal masses or tenderness elicited. 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 No [...] bladder scan Records/ Imaging/ Results reviewed include: NURSING STUDENT and ER notes from [facility] Impression: This is a 77 year old [...] 4:00 PM EDT Office Visit Family Medicine [address] [place] [phone] Radha Infante MD [address] [place] [address] [place] [address] 07/10/2024 1:30 PM EDT Imaging Radiology [address] [place] [address] Scheduled Referrals Name Type Priority Associated Diagnoses [...] D LEVEL ONCE IN A LIFETIME-USE SMARTSET# [id number] Completed 11/24/2020, 05/23/2018, 06/22/2013, Additional history exists [...]
--- OUTSIDE RECORDS SUMMARY | 2023-09-12 15:47 | External Medical Summary | Summary of Care ---
Author Name Unknown Organization [facility] Address [address] [place] [address] Phone [phone] Care Team Providers Care Take Off Man Name Role Phone Jose Valladares MD Primary Care Provider + [phone] Reason for Referral * Evaluate & Treat - Unlimited Visits (Within 10 days (routine)) - Authorized Specialty Diagnoses / Procedures Referred By Contac t Referred To Contact HOSPITALITY JOB TITLES - Urogynecology / Gynecology Urology Diagnoses Genital prolapse Ariana Pitts MD [address] [address] Referral ID Status Reason Start Date Expiration Date Visits Requested Visits Authorized [id number] Authorized Specialty Services Required 08/17/[phone] Question Answer Referral Priority Within 10 days (routine) Where should this appointment be scheduled? [facility] What condition is the patient being referred for? Prolapse (dropped bladder, uterus, etc) Encounter Details Date Type Department Care Team (Late st Contact Info) Description 08/17/2023 Orders Only [facility] [address] [place] [address] Ext *DO NOT REMOVE THIS DEPARTMENT* [place] [id number] Request, External Referral Genital prolapse* Allergies Active Allergy Reactions Criticality Noted Date [...] mRNA, LNP-s, No Pre serve, 2-Dose Series ([employer]) 09/11/2020,08/21/2020 documented as of this encounter Social [...] 8:00 AM EDT Office Visit Family Medicine [address] [place] [phone] Radha Infante MD [address] [place] [address] [place] [address] 07/10/2024 1:30 PM EDT Imaging Radiology [address] [place] [address] Scheduled Referrals Name Type Priority Associated Diagnoses [...] D LEVEL ONCE IN A LIFETIME-USE SMARTSET# [id number] Completed 11/24/2020, 05/23/2018, 06/22/2013, Additional history exists [...] as of this encounter Visit Diagnoses Diagnosis Genital prolapse- Primary Unspecified genital prolapse documented in this encounter Care Teams Take Off Man Relationship Specialty Start Date End Date Jose Valladares MD [address] [place] [address] [place] [address] PCP - General Family Medicine 07/04/23 documented as of this encounter
[2023-09-12] MEDS: dilTIAZem HCl 5 MG/ML 5 ML VIAL IV ONE (16:12)
[2023-09-12 16:27] LABS: Basophils # (auto) 0.07 K/uL (0.00-0.20); Basophils % (auto) 0.8 %; Eosinophils # (auto) 0.54 K/uL (0.00-0.50); Eosinophils % (auto) 6.2 %; Hematocrit (blood only) 44.4 % (37.0-47.0); Immature Granulocytes # (auto) 0.03 K/uL (0.01-0.20); Immature Granulocytes % (auto) 0.3 %; Lymphocytes # (auto) 1.59 K/uL (1.20-3.40); Lymphocytes % (auto) 18.4 %; Mean Corpuscular Hemoglobin 30.5 pg (25.0-34.0); Mean Corpuscular Hgb Conc 33.8 g/dL (32.0-36.0); Mean Corpuscular Volume 90.4 fL (80.0-100.0); Mean Platelet Volume 9.6 fL (9.4-12.4); Monocytes # (auto) 0.51 K/uL (0.11-0.59); Monocytes % (auto) 5.9 %; Neutrophils # (auto) 5.91 K/uL (1.40-6.50); Neutrophils % (auto) 68.4 %; Platelet Count 373 K/uL (130-400); RDW Coefficient of Variation 12.2 % (11.5-14.5); Red Blood Count 4.91 M/uL (4.20-5.40); White Blood Count 8.65 K/ul (4.8-10.8)
[2023-09-12] MEDS: dilTIAZem HCl 5 MG/ML 5 ML VIAL IV STA ×2 (16:34→16:35)
[2023-09-12 16:44] LABS: Albumin Globulin Ratio 1.4 (0.9-2); Albumin Level 4.4 gm/dl (3.4-5.0); BUN Creatinine Ratio 17.5 (10-20); Bilirubin,Total 0.3 mg/dl (0.2-1.0); Calcium 9.8 mg/dl (8.6-10.3); Creatinine Clr Calc Pharmacy 74.5 ml/min; Est GFR (African American) 101.7 ml/min; Est GFR (Non-African American) 87.7 ml/min; Globulin 3.1 gm/dl (2.5-4.0); Potassium 3.9 mmol/L (3.5-5.1); Total Protein 7.5 gm/dl (6.0-8.3)
[2023-09-12 16:51] LABS: Troponin I High Sensitivity 6.9 pg/ml (0-14)
--- NOTE | 2023-09-12 16:54 | XRay Report ---
XR chest 1V portable CLINICAL HISTORY: Dysrhythmia. COMPARISON STUDY: Chest radiograph June 27, 2023. FINDINGS: Lung volumes are normal. There is no pneumothorax or pleural effusion. Cardiomegaly is unch anged. Interstitial thickening is similar to prior exam. No superimposed consolidation is identified. 1.4 cm nodular right upper lung density is present. IMPRESSION: 1. 1.4 cm right upper lung nodular density. This likely reflects summation artifact. A small focus of pneumonia or a pulmonary nodule are considered less likely however a follow-up nonemergent PA and la teral chest radiographs are recommended. 2. Chronic interstitial thickening. ACT 112: Negative or not required by law. Electronically signed by: Adama Muir M.D. 09/12/2023 4:52 PM
[2023-09-12 16:58] LABS: Partial Thromboplastin Time 28 Seconds (21-31); Prothrombin Time 10.4 Seconds (9.0-12.0)
[2023-09-12 17:00] LABS: Thyroid Stimulating Hormone 3.366 uIu/ml (0.300-4.500)
--- NOTE | 2023-09-12 17:33 | Emergency Department Note ---
Impression & Plan Atrial fibrillation, new onset, Lumbar radiculopathy ED Provider Note CHIEF COMPLAINT: Back pain HISTORY OF PRESENT ILLNESS: This 77-year-old female patient with past medical history of chronic lower back pain/sciatica, pancreatitis, cholecystitis, hypertension and mood disorder presents to the emergency department with complaints of lower back pain into the left leg. The patient states this is an ongoing issue. She recently had an MRI done in [place]. Patient states she was evaluated in our emergency department several months ago for similar issues. She has been taking Tylenol and Aleve at home for the discomfort. REVIEW OF SYSTEMS: A review of systems was performed with positives and pertinent negatives listed in the history of present illness. 10 systems were reviewed and are otherwise negative. ALLERGIES: see below MEDICATIONS: see below PMH: see below SOCIAL HISTORY: see below DDx: atrial fibrillation, congestive heart failure, electrolyte abnormality, pneumonia, COPD exacerbation, lumbar disc herniation, sciatica among others PHYSICAL EXAM: Vital signs reviewed. General: chronically ill-appearing 77-year-old female, in no significant distress. HEENT: No scleral icterus, PERRLA, neck supple. Atraumatic. Cardiovascular: irregular and tachycardic, no extra sounds. Pulmonary: Clear to auscultation bilaterally, normal work of breathing. Abdomen: Soft, nontender, nondistended, positive bowel sounds. Musculoskeletal: Atraumatic, no peripheral edema. Neurologic: Patient awake alert and oriented x 3, speech is clear. Equal strength in the bilateral lower extremities Skin: Warm, dry, no rash EMERGENCY DEPARTMENT COURSE/MDM: This patient was evaluated and appeared to be in no significant distress. IV access was obtained and laboratory work was drawn. The patient was placed on the mechanical piping designer noted to be in rapid atrial fibrillation. Blood pressure remained stable. patient was medicated with 10 mg of IV Cardizem with reasonable rate control however she remained above 100. She was given a second dose of IV Cardizem 10 mg and broke to a normal sinus rhythm patient's laboratory work is reassuring. Chest x-ray is clear. Pt c/o lower back pain and Patient was medicated with IV morphine and Zofran. Previous back pain evaluations were reviewed. CT imaging reveals canal narrowing with likely disc herniation, MRI was performed several days ago and results will need to be acquired. Given the patient's new onset atrial fibrillation, patient will be evaluated by the hospitalist service for admission and further management. She was made aware of plan and agreed. MONITORING: An order for cardiac monitoring was placed and the patient is noted to be in a rapid atrial fibrillation at 160 bpm RADIOLOGY: chest x-ray to my interpretation reveals no evidence of focal lung consolidation or failure EKG: to my interpretation reveals a normal sinus rhythm at 86 bpm. DISPOSITION: Admission Past Med/Surg History Problem List (Updated 09/12/23 @ 21:11 by Kathleen Resendez MD) Lumbar radiculopathy (Acute) Atrial fibrillation, new onset (Acute) Urinary frequency Vaginal atrophy Chronic vulvitis Microscopic hematuria Hypertension (Chronic) Anxiety (Acute) Anxiety (Acute) Back pain (Acute) Cholecystitis (Acute) Depression (Acute) Gallstones (Acute) Gallstones (Acute) Pancreatitis (Acute) Weakness (Acute) Medical History Vitamin D deficiency 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 Senile osteoporosis Rosacea Obesity Mixed dyslipidemia Mitral valve disorder HSV-2 (herpes simplex virus 2) infection Hematuria Chronic reflux esophagitis Choledocholithiasis Adjustment disorder with depressed mood Acquired hypothyroidism Surgical History H/O: hysterectomy History of cholecystectomy Hx of appendectomy Hx of salpingo-oophorectomy, bilateral Family History Mother Alzheimer disease Stroke Sister Arthritis Grandmother (Maternal) Benign neoplasm of brain Aunt Asthma Social History Smoking Status: Former smoker Hx Alcohol Use: No Preferred Language: French Feels Safe at Home: Yes Allergies Allergies Allergy/AdvReac Type Severity Reaction Status Date / Time sertraline Allergy Intermediate RASH Verified 09/12/23 17:43 prednisone AdvReac Unknown MADE PT Verified 09/12/23 17:43 FEEL ILL Home Meds Home Medications Medication Instructions Recorded Confirmed fluoxetine 20 mg capsule 20 mg PO QAM 11/06/20 09/12/23 cholecalciferol (vitamin D3) 50 50 mcg PO QAM 06/27/23 09/12/23 mcg (2,000 unit) tablet (Vitamin D3) atorvastatin 20 mg tablet 20 mg PO QAM 09/12/23 09/12/23 baclofen 10 mg tablet 10 mg PO HS PRN Headache 09/12/23 09/12/23 hydroxyzine HCl 25 mg tablet 25 mg PO Q6 PRN Panic Attack(S) 09/12/23 09/12/23 valacyclovir 1 gram tablet 1 mg PO QAM 09/12/23 09/12/23 Results & Data (ED) Vital Signs Vital Signs - 24 hr 09/12/23 15:47 09/12/23 15:54 09/12/23 16:04 Temperature 36.8 C Temperature Source Temporal Artery Scan Pulse Rate 139 H 170 H Pulse Rate [Apical] 160 H Pulse Rhythm Regular Pulse Strength Normal Respiratory Rate 18 32 H Respiratory Effort / Characteristics Non-Labored Respiratory Depth Normal Respiratory Pattern Regular Blood Pressure 168/103 H Blood Pressure [Right Arm] 147/105 H Blood Pressure Mean 124 Blood Pressure Mean [Right Arm] 119 Blood Pressure Position Sitting Pulse Oximetry 95 96 Oxygen Delivery Method Room Air Sepsis Recent Fever Within 48 Hours No Sepsis New/Unexplained Change in Mental Status N/A Sepsis Action Taken by Nursing No Action Required Pulse Oximetry Post Tiitration 09/12/23 16:06 09/12/23 16:54 09/12/23 18:03 Temperature Temperature Source Pulse Rate Pulse Rate [Apical] 86 81 Pulse Rhythm Pulse Strength Respiratory Rate 26 H 20 Respiratory Effort / Characteristics Respiratory Depth Respiratory Pattern Blood Pressure Blood Pressure [Right Arm] 171/89 H 136/74 Blood Pressure Mean Blood Pressure Mean [Right Arm] 116 94 Blood Pressure Position Pulse Oximetry 98 98 Oxygen Delivery Method Room Air Room Air Room Air Sepsis Recent Fever Within 48 Hours Sepsis New/Unexplained Change in Mental Status Sepsis Action Taken by Nursing Pulse Oximetry Post Tiitration 96 09/12/23 19:57 Temperature Temperature Source Pulse Rate 78 Pulse Rate [Apical] Pulse Rhythm Pulse Strength Respiratory Rate Respiratory Effort / Characteristics Respiratory Depth Respiratory Pattern Blood Pressure Blood Pressure [Right Arm] Blood Pressure Mean Blood Pressure Mean [Right Arm] Blood Pressure Position Pulse Oximetry Oxygen Delivery Method Sepsis Recent Fever Within 48 Hours Sepsis New/Unexplained Change in Mental Status Sepsis Action Taken by Nursing Pulse Oximetry Post Tiitration Home Medications Current Medication List: was personally reviewed by me Laboratory Data Attestation: I reviewed the patient's lab results. 09/12/23 16:09 09/12/23 16:09 Lab Results 09/12/23 09/12/23 Range/Units 16:09 19:26 WBC 8.65 (4.8-10.8) K/ul RBC 4.91 (4.20-5.40) M/uL Hgb 15.0 (12.0-16.0) g/dl Hct 44.4 (37.0-47.0) % MCV 90.4 (80.0-100.0) fL MCH 30.5 (25.0-34.0) pg MCHC 33.8 (32.0-36.0) g/dL RDW Std Deviation 40.0 (36.4-46.3) fL RDW Coeff of Nina 12.2 (11.5-14.5) % Plt Count 373 (130-400) K/uL MPV 9.6 (9.4-12.4) fL Immature Gran % (Auto) 0.3 % Neut % (Auto) 68.4 % Lymph % (Auto) 18.4 % Terrell % (Auto) 5.9 % Eos % (Auto) 6.2 % Baso % (Auto) 0.8 % Neut # (Auto) 5.91 (1.40-6.50) K/uL Lymph # (Auto) 1.59 (1.20-3.40) K/uL Terrell # (Auto) 0.51 (0.11-0.59) K/uL Eos # (Auto) 0.54 H (0.00-0.50) K/uL Baso # (Auto) 0.07 (0.00-0.20) K/uL Immature Gran # (Auto) 0.03 (0.01-0.20) K/uL PT 10.4 (9.0-12.0) Seconds INR 1.0 (0.9-1.1) APTT 28 (21-31) Seconds PTT Ratio 1.0 Sodium 141 (136-145) mmol/L Potassium 3.9 (3.5-5.1) mmol/L Chloride 105 (98-107) mmol/L Carbon Dioxide 27 (21-32) mmol/L Anion Gap 9 (3-11) BUN 11 (6-23) mg/dl Creatinine 0.63 (0.6-1.2) mg/dl Est Cr Clr Drug Dosing 74.5 ml/min Est GFR ( Amer) 101.7 ml/min Est GFR (Non-Af Amer) 87.7 ml/min BUN/Creatinine Ratio 17.5 (10-20) Glucose 133 H (70-99(Fasting)) mg/dl Calcium 9.8 (8.6-10.3) mg/dl Magnesium 2.0 (1.7-2.4) mg/dl Total Bilirubin 0.3 (0.2-1.0) mg/dl AST 27 (13-39) U/L ALT 25 (7-52) U/L Alkaline Phosphatase 104 (34-104) U/L Troponin I High Sens 6.9 (0-14) pg/ml Total Protein 7.5 (6.0-8.3) gm/dl Albumin 4.4 (3.4-5.0) gm/dl Globulin 3.1 (2.5-4.0) gm/dl Albumin/Globulin Ratio 1.4 (0.9-2) TSH 3.366 (0.300-4.500) uIu/ml Urine Color Yellow Urine Appearance Clear (Clear) Urine pH 8.0 H (4.5-7.5) Ur Specific [place] 1.007 (1.000-1.030) Urine Protein Negative (Negative) Urine Glucose (UA) Negative (Negative) Urine Ketones 1+ H (Negative) Urine Blood 1+ H (Negative) Urine Nitrite Negative (Negative) Urine Bilirubin Negative (Negative) Urine Urobilinogen Negative (Negative) Ur Leukocyte Esterase Trace H (Negative) Urine WBC (Auto) 0-5 (0-5) /hpf Urine RBC (Auto) 3-5 H (0-2) /hpf U Hyaline Cast (Auto) 0-2 (0-2) /lpf U Epithel Cells (Auto) 0-2 (0-2) /hpf Urine Bacteria (Auto) None Seen (None Seen) Administered Medications Discontinued Medications Diltiazem HCl (Diltiazem Hcl 5 Mg/Ml 5 Ml Vial) Confirm Administered Dose 25 mg IV .STK-MED ONE Stop: 09/12/23 16:11 Last Increment: 09/12/23 16:32 Dose: 10 mg Documented By: BC Co-signed By: DALIA Increment: 09/12/23 16:12 Dose: 10 mg Documented By: BC Co-signed By: ML Diltiazem HCl (Diltiazem Hcl 5 Mg/Ml 5 Ml Vial) 10 mg IV NOW STA Stop: 09/12/23 16:34 Last Admin: 09/12/23 16:34 Dose: Not Given Documented By: BC Diltiazem HCl (Diltiazem Hcl 5 Mg/Ml 5 Ml Vial) 10 mg IV NOW STA Stop: 09/12/23 16:34 Last Admin: 09/12/23 16:35 Dose: Not Given Documented By: BC Morphine Sulfate (Morphine Sulfate 4 Mg/Ml 1 Ml Carp\Vial) 4 mg IV NOW STA Stop: 09/12/23 17:45 Last Admin: 09/12/23 17:48 Dose: 4 mg Documented By: BC Ondansetron HCl (Ondansetron Inj 2 Mg/Ml 2 Ml Vial) 4 mg IV NOW STA Stop: 09/12/23 17:45 Last Admin: 09/12/23 17:48 Dose: 4 mg Documented By: BC Imaging Data Radiologist's Impression: Chest X-Ray 09/12/23 16:02 XR chest 1V portable CLINICAL HISTORY: Dysrhythmia. COMPARISON STUDY: Chest radiograph June 27, 2023. FINDINGS: Lung volumes are normal. There is no pneumothorax or pleural effusion. Cardiomegaly is unchanged. Interstitial thickening is similar to prior exam. No superimposed consolidation is identified. 1.4 cm nodular right upper lung density is present. IMPRESSION: 1. 1.4 cm right upper lung nodular density. This likely reflects summation artifact. A small focus of pneumonia or a pulmonary nodule are considered less likely however a follow-up nonemergent PA and lateral chest radiographs are recommended. 2. Chronic interstitial thickening. ACT 112: Negative or not required by law. Electronically signed by: Adama Muir M.D. 09/12/2023 4:52 PM Discharge Plan Visit Data Chief Complaint: Back Injury/Pain Stated Complaint: BACK PAIN,TROUBLE MOVING,FEET SWOLLEN,WEAK ED Provider: Kathleen Resendez Discharge Problem: Atrial fibrillation, new onset, Lumbar radiculopathy Forms Stand Alone Forms: [facility] Prescriptions Prescriptions: No Action fluoxetine 20 mg capsule 20 mg PO QAM atorvastatin 20 mg tablet 20 mg PO QAM valacyclovir 1 gram tablet 1 mg PO QAM baclofen 10 mg tablet 10 mg PO HS PRN (Reason: Headache) hydroxyzine HCl 25 mg tablet 25 mg PO Q6 PRN (Reason: Panic Attack(S)) cholecalciferol (vitamin D3) [Vitamin D3] 50 mcg (2,000 unit) Tablet 50 mcg PO QAM Referrals Referrals: PCP,NO [Physician] -
[2023-09-12] MEDS: MoRPHine SULFATE 4 MG/ML 1 ML CARP\\VIAL IV STA (17:48)
[2023-09-12] MEDS: ONDANSETRON INJ 2 MG/ML 2 ML VIAL IV STA (17:48)
[2023-09-12 19:54] LABS: Appearance Urine Clear (Clear); Bacteria Urine Automated None Seen (None Seen); Bilirubin Urine Negative (Negative); Blood Urine 1+ (Negative); Cast Urine Automated 0-2 /lpf (0-2); Color Urine Yellow; Epithelial Cell Urine Auto 0-2 /hpf (0-2); Glucose Urine UA Negative (Negative); Ketones Urine 1+ (Negative); Leukocyte Esterase Urine Trace (Negative); Nitrite Urine Negative (Negative); Protein Urine Negative (Negative); Specific Gravity Urine 1.007 (1.000-1.030); Urobilinogen Urine Negative (Negative); WBC Urine Automated 0-5 /hpf (0-5)
--- NOTE | 2023-09-12 21:05 | History & Physical Report ---
Date of Service September 12, 2023 Assessment & Plan (1) Atrial fibrillation, new onset: (2) Lumbar radiculopathy: Plan Pt is a 77yoF with PMHx significant for hypothyroidism, HLD, esophagitis, CKD, Vit D deficiency, Osteoporosis, Atopic dermatitis who presented for lower back pain but was found to be in rapid a fib. Atrial Fibrillation with RVR Pt noted to have HR as high as the 170s, symptomatic She notes she has been having palpitations periodically for a few years, did not follow up with pcp about this TSH wnl Echo ordered and pending Received 2 doses of diltiazem 10mg with conversion to sinus rhythm in the ED Continue to monitor on telemetry Cardiology consult in the AM (per daytime provider) Degenerative Disk Disease, Mild to moderate Disc bulge and herniation, L4-L5 Pt with recent MRI lumbar spine done on 09/05/23 in [facility] Noted the following: -mild to moderate multilevel DDD -L4 to L5 disc bulge, large disc herniation on L with high grade canal stenosis -mild R and moderate L foraminal narrowing -no suggestion of bone marrow edema, soft tissue or ligamentous injury Pain control, PT/OT Ortho spine consult, appreciate recs Lung Density Chronic Interstitial thickening Chest XRAY noting RUL density Read as likely artifact and followup PA/lateral chest XRAY recommended Wheezing noted on exam AM CT chest pending Duonebs prn Consider pulmonology consult Continue other home meds as ordered Diet: HH DVT prophylaxis: Lovenox SQ Dispo: PCU/tele History of Present Illness Chief Complaint: back pain Primary Care Provider: Radha Patel MD Pt is a 77yoF with PMHx significant for hypothyroidism, HLD, esophagitis, CKD, Vit D deficiency, Osteoporosis, Atopic dermatitis who presented for lower back pain but was found to be in rapid a fib. Pt states that she came in because of intractable back pain. States that she is being worked up as outpatient for this with a recent MRI of the spine. However did not feel like her pain was being controlled so she presented to the ED for further evaluation. States that she was told that she would be receiving oxycodone to help with the pain. In the ED, she was noted to be in rapid a fib on the ekg monitor tech with HR as high as the 170s. She states she did feel a "bump-bump" in her chest. Has been having those sensations off and on for about 2 years and feels like she can make it stop by putting her arm around her chest. States she has never discussed this with her primary care provider. Has been getting SOB occasionally as well though not necessarily related. Allergies Allergy/AdvReac Type Severity Reaction Status Date / Time sertraline Allergy Intermediate RASH Verified 09/12/23 17:43 prednisone AdvReac Unknown MADE PT Verified 09/12/23 17:43 FEEL ILL Home Medications Medication Instructions Recorded Confirmed Type fluoxetine 20 mg capsule 20 mg PO QAM 11/06/20 09/12/23 History cholecalciferol (vitamin D3) 50 50 mcg PO QAM 06/27/23 09/12/23 History mcg (2,000 unit) tablet (Vitamin D3) atorvastatin 20 mg tablet 20 mg PO QAM 09/12/23 09/12/23 History baclofen 10 mg tablet 10 mg PO HS PRN Headache 09/12/23 09/12/23 History hydroxyzine HCl 25 mg tablet 25 mg PO Q6 PRN Panic Attack(S) 09/12/23 09/12/23 H istory valacyclovir 1 gram tablet 1 mg PO QAM 09/12/23 09/12/23 History Past Med/Surg History Problem List (Updated 09/12/23 @ 21:11 by Kathleen Resendez MD) Lumbar radiculopathy (Acute) Atrial fibrillation, new onset (Acute) Urinary frequency Vaginal atrophy Chronic vulvitis Microscopic hematuria Hypertension (Chronic) Anxiety (Acute) Anxiety (Acute) Back pain (Acute) Cholecystitis (Acute) Depression (Acute) Gallstones (Acute) Gallstones (Acute) Pancreatitis (Acute) Weakness (Acute) Medical History Vitamin D deficiency 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 Senile osteoporosis Rosacea Obesity Mixed dyslipidemia Mitral valve disorder HSV-2 (herpes simplex virus 2) infection Hematuria Chronic reflux esophagitis Choledocholithiasis Adjustment disorder with depressed mood Acquired hypothyroidism Surgical History H/O: hysterectomy History of cholecystectomy Hx of appendectomy Hx of salpingo-oophorectomy, bilateral Family History Mother Alzheimer disease Stroke Sister Arthritis Grandmother (Maternal) Benign neoplasm of brain Aunt Asthma Social History Smoking Status: Former smoker Hx Alcohol Use: No Preferred Language: Thai Feels Safe at Home: Yes Review of Systems Review of Systems: All systems reviewed & are unremarkable except as noted in Subjective Physical Exam Physical Exam: General: Alert, oriented. No acute distress Psych: Appropriate mood and affect Neuro: No gross deficits while laying in bed HEENT: NC/AT CV: RRR Resp: Breath sounds coarse with wheezing bilaterally, no increased effort of breathing. Abdomen: Soft, nontender, nondistended Extremities: edema in lower extremities bilaterally. Results & Data Results & Data Vital Signs (Past 12 Hours) Vital Signs Temp Pulse Pulse Resp BP BP Pulse Ox 09/12/23 19:57 78 09/12/23 18:03 81 20 136/74 98 09/12/23 16:54 86 26 H 171/89 H 98 09/12/23 16:06 09/12/23 16:04 170 H 09/12/23 15:54 160 H 32 H 147/105 H 96 09/12/23 15:47 36.8 C 139 H 18 168/103 H 95 O2 Del Method 09/12/23 19:57 09/12/23 18:03 Room Air 09/12/23 16:54 Room Air 09/12/23 16:06 Room Air 09/12/23 16:04 09/12/23 15:54 09/12/23 15:47 Room Air Diagnostic Findings Chest X-Ray 09/12/23 16:02 XR chest 1V portable CLINICAL HISTORY: Dysrhythmia. COMPARISON STUDY: Chest radiograph June 27, 2023. FINDINGS: Lung volumes are normal. There is no pneumothorax or pleural effusion. Cardiomegaly is unchanged. Interstitial thickening is similar to prior exam. No superimposed consolidation is identified. 1.4 cm nodular right upper lung density is present. IMPRESSION: 1. 1.4 cm right upper lung nodular density. This likely reflects summation artifact. A small focus of pneumonia or a pulmonary nodule are considered less likely however a follow-up nonemergent PA and lateral chest radiographs are recommended. 2. Chronic interstitial thickening. ACT 112: Negative or not required by law. Electronically signed by: Adama Muir M.D. 09/12/2023 4:52 PM
[2023-09-12] MEDS: FUROSEMIDE 40 MG/4 ML VIAL IV ONE (21:09)
[2023-09-12] MEDS ORDERED: ALBUT/IPRATROP 3MG/0.5MG NEB 3 ML VIAL NEB PRN (21:38)
[2023-09-12] MEDS ORDERED: ACETAMINOPHEN 500 MG TAB PO PRN (21:38)
[2023-09-12] MEDS ORDERED: POLYETHYLENE (MIRALAX) 17 GM PACK PO PRN (21:38)
[2023-09-12] MEDS ORDERED: ONDANSETRON INJ 2 MG/ML 2 ML VIAL IV PRN (21:38)
[2023-09-12] MEDS ORDERED: hydrOXYzine HCl 25 MG TAB PO PRN (21:38)
[2023-09-12] MEDS: oxyCODONE HCL IR 5 MG TAB (IMMEDIATE RELEASE) PO PRN (22:15)
[2023-09-12] MEDS: ENOXAPARIN INJ 40 MG/0.4 ML SYR SQ SCH (22:43)
[2023-09-13] MEDS: KETOROLAC TROMETHAMINE 15 MG/ML VIAL IV PRN (02:51)
[2023-09-13] MEDS: MELATONIN 3 MG TAB PO PRN (02:52)
[2023-09-13 06:52] LABS: Hematocrit (blood only) 38.7 % (37.0-47.0); Hemoglobin 12.9 g/dl (12.0-16.0); Mean Corpuscular Hemoglobin 30.9 pg (25.0-34.0); Mean Corpuscular Hgb Conc 33.3 g/dL (32.0-36.0); Mean Corpuscular Volume 92.8 fL (80.0-100.0); Platelet Count 335 K/uL (130-400); RDW Coefficient of Variation 12.4 % (11.5-14.5); RDW Standard Deviation 42.1 fL (36.4-46.3); Red Blood Count 4.17 M/uL (4.20-5.40); White Blood Count 6.99 K/ul (4.8-10.8)
[2023-09-13 07:33] LABS: BUN Creatinine Ratio 19.4 (10-20); Calcium 9.5 mg/dl (8.6-10.3); Creatinine Clr Calc Pharmacy 72.1 ml/min; Est GFR (African American) 99.7 ml/min; Phosphorus 5.2 mg/dl (2.5-4.9); Potassium 3.9 mmol/L (3.5-5.1)
--- NOTE | 2023-09-13 08:20 | Electrocardiogram Report ---
Test Reason : Blood Pressure : / mmHG Vent. Rate : 154 BPM Atrial Rate : 000 BPM P-R Int : 000 ms QRS Dur : 078 ms QT Int : 286 ms P-R-T Axes : 000 -11 073 degrees QTc Int : 458 ms Atrial fibrillation with rapid ventricular response Incomplete right bundle branch block Diffuse Nonspecific ST abnormality Abnormal ECG When compared with ECG of 27-JUN-2023 12:05, Atrial fibrillation has replaced Sinus rhythm Vent. rate has increased BY [address] now depressed in Inferior leads ST now depressed in Anterolateral leads Confirmed by Roland Andres ([id number]) on 09/13/2023 8:20:16 AM Referred By: NO PCP Confirmed By:Roland Andres
[2023-09-13] MEDS: valACYclovir HCL 500 MG TABLET PO SCH (08:56)
[2023-09-13] MEDS: DOCUSATE SODIUM 100 MG CAP PO SCH (08:56)
[2023-09-13] MEDS: ATORVASTATIN 20 MG TAB PO SCH (08:57)
[2023-09-13] MEDS: FLUoxetine HCL 20 MG CAP PO SCH (08:57)
[2023-09-13] MEDS: CHOLECALCIFEROL 25 MCG (1000 UNITS) TAB PO SCH (08:57)
--- NOTE | 2023-09-13 13:19 | CT Scan Report ---
CT OF THE CHEST WITHOUT IV CONTRAST CLINICAL HISTORY: f/u chest xray, chronic intersitial thickening COMPARISON STUDY: Chest radiographs June 27, 2023 and September 12, 2023. CT DOSE: 611.52 mGy.cm TECHNIQUE: Axial images of the chest were obtained without IV contrast. Images were reviewed in the axial, sagittal, and coronal planes. IV contrast was not administered for this examination. Automat ed exposure control was utilized for the study. A dose lowering technique was utilized adhering to t he principles of ALARA. FINDINGS: Prominent mediastinal lymph nodes measure up to 9 mm in short axis diameter. The heart is mildly enlarged. There is mild dilatation of the central pulmonary arteries. No pneumothorax or pleur al effusion is present. Note is made of subpleural reticulation throughout the lungs. Mild traction b ronchiectasis is present. There is mild subpleural cystic change without definitive honeycombing. A f ew mild right upper lobe groundglass opacities are present. Additional scattered groundglass opacitie s are present. No solid nodules are identified. Central airways are patent. Compression fracture of t he superior endplate of L1 is new since CT of June 27, 2023. There is 40% loss of vertebral body hei ght. Mild to moderate compression fractures of the superior endplates of T5, T8 and T9 are present. IMPRESSION: 1. Diffuse subpleural reticulation with mild traction bronchiectasis. 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 2. No discrete solid nodule to correspond to the finding on chest radiograph of September 12, 2023. This wa s artifactual. 3. Scattered groundglass opacities. These are likely related to interstitial lung disease although a mild superimposed infectious process could appear similar. No consolidation. 4. Mild dilatation of the central pulmonary arteries which raises the possibility of pulmonary arteri al hypertension. ACT 112: Negative or not required by law. Electronically signed by: Adama Muir M.D. 09/13/2023 1:18 PM
--- NOTE | 2023-09-13 13:56 | Cardiology Consultation ---
Date of Consultation September 13, 2023 Assessment & Plan (1) Paroxysmal atrial fibrillation: (2) Atrial fibrillation, new onset: (3) Interstitial lung disease: (4) Lumbar radiculopathy: Plan 77-year-old female who presented for evaluation of severe back pain and was found to be in atrial fibrillation with rapid ventricular spots. Patient with spontaneous conversion to sinus rhythm following 2 doses of IV diltiazem. No prior history of significant cardiac disease no significant structural abnormalities on echocardiogram other than mild aortic sclerosis. Exam notable for diffuse crackles consistent with probable interstitial lung disease Recommendations: Add metoprolol succinate 25 mg p.o. daily to regimen Patient with [id number] 2 score of 3-4. Would warrant anticoagulation recommend Eliquis 5 mg twice per day Supplement potassium to greater than 4 Checks oxygenation levels given exam consistent with interstitial lung disease confirmed by CT scan Outpatient cardiology follow-up 4 weeks History of Present Illness Reason for Consultation: Paroxysmal atrial fibrillation Requesting Physician: Dr. Hidalgo Attending Physician: Grey Hidalgo MD History of Present Illness Patient is a 77-year-old female without prior history of cardiac disease other than possible mitral valve prolapse syndrome in the remote past. Underlying medical issues include recent difficulties with progressive back pain, hyperlipidemia, hypothyroidism, hypertension. Patient presented to ER for evaluation of persistent back pain but was found to be in atrial fibrillation with rapid response. Patient aware of occasional sense of palpitation and heart pounding no prior documentation of cardiac arrhythmias. No history of myocardial infarction, congestive heart failure, rheumatic fever scarlet fever. Possible mitral valve prolapse in the past. Patient minimally aware of palpitations on presentation. No history of TIA or stroke, diabetes mellitus, prior vascular disease In ER patient received IV diltiazem x 2 with spontaneous conversion to sinus rhythm. No further arrhythmias overnight asymptomatic other than chronic back discomfort Denies fevers chills unexplained infections. No history of syncope or near syncope. Does note significant mood fluctuations since fpc in remote past. Relatively sedentary about home. Previous smoker discontinued 6 years prior Allergies Allergy/AdvReac Type Severity Reaction Status Date / Time sertraline Allergy Intermediate RASH Verified 09/12/23 17:43 prednisone AdvReac Unknown MADE PT Verified 09/12/23 17:43 FEEL ILL Home Medications Medication Instructions Recorded Confirmed Type fluoxetine 20 mg capsule 20 mg PO QAM 11/06/20 09/12/23 History cholecalciferol (vitamin D3) 50 50 mcg PO QAM 06/27/23 09/12/23 History mcg (2,000 unit) tablet (Vitamin D3) atorvastatin 20 mg tablet 20 mg PO QAM 09/12/23 09/12/23 History baclofen 10 mg tablet 10 mg PO HS PRN Back Pain 09/12/23 09/12/23 History hydroxyzine HCl 25 mg tablet 25 mg PO Q6 PRN Panic Attack(S) 09/12/23 09/12/23 History valacyclovir 1 gram tablet 1,000 mg PO QAM PRN Outbreak 09/12/23 09/13/23 History Patient History Medical History Vitamin D deficiency 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 Senile osteoporosis Rosacea Obesity Mixed dyslipidemia Mitral valve disorder HSV-2 (herpes simplex virus 2) infection Hematuria Chronic reflux esophagitis Choledocholithiasis Adjustment disorder with depressed mood Acquired hypothyroidism Surgical History H/O: hysterectomy History of cholecystectomy Hx of appendectomy Hx of salpingo-oophorectomy, bilateral Family History Mother Alzheimer disease Stroke Sister Arthritis Grandmother (Maternal) Benign neoplasm of brain Aunt Asthma Social History Smoking Status: Former smoker Hx Alcohol Use: No Hx Substance Use: No Preferred Language: Togolese Communication Ability: Effective 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: No Beliefs That Will Affect Care: None Current Living Situation: Significant Other Current Living Situation Comment: lives with Wolf Rodriguez Other Information That Helps Us Care for You: No Feels Safe at Home: Yes Safety Concerns: Feels Safe At This Time Assistive Devices: Glasses and Walker Review of Systems Review of Systems: All systems reviewed & are unremarkable except as noted in HPI & below Physical Exam Constitutional: WD/WN, vitals as above no acute distress Eyes: PERRL, conjunctivae normal, anicteric sclerae ENMT: external ear and nose normal, oropharynx normal Neck: trachea midline, no thyromegaly Respiratory: Auscultation: + crackles (Diffuse coarse crackles without wheezes) Cardiovascular: RRR, no murmur, no edema Vessels: no JVD Extremities: + edema (Trace) Musculoskeletal: Exam limited by pain Skin: Mild rubor, excoriations lower extremities Results & Data Vital Signs (Past 12 Hours) Vital Signs Temp Pulse Pulse Resp BP Pulse Ox O2 Del Method 09/13/23 10:58 36.3 C L 76 17 143/83 H 92 Room Air 09/13/23 09:38 66 09/13/23 09:38 Room Air 09/13/23 07:33 36.5 C 64 17 122/76 95 Room Air 09/13/23 04:21 36.4 C L 69 18 149/75 H 94 Room Air Laboratory Results Laboratory Results - last 24 hr 09/12/23 09/12/23 09/13/23 16:09 19:26 06:02 WBC 8.65 6.99 RBC 4.91 4.17 L Hgb 15.0 12.9 Hct 44.4 38.7 MCV 90.4 92.8 MCH 30.5 30.9 MCHC 33.8 33.3 RDW Std Deviation 40.0 42.1 RDW Coeff of Nina 12.2 12.4 Plt Count 373 335 MPV 9.6 10.0 Immature Gran % (Auto) 0.3 Neut % (Auto) 68.4 Lymph % (Auto) 18.4 Tucker % (Auto) 5.9 Eos % (Auto) 6.2 Baso % (Auto) 0.8 Neut # (Auto) 5.91 Lymph # (Auto) 1.59 Tucker # (Auto) 0.51 Eos # (Auto) 0.54 H Baso # (Auto) 0.07 Immature Gran # (Auto) 0.03 PT 10.4 INR 1.0 APTT 28 PTT Ratio 1.0 Sodium 141 141 Potassium 3.9 3.9 Chloride 105 103 Carbon Dioxide 27 32 Anion Gap 9 6 BUN 11 13 Creatinine 0.63 0.67 Est Cr Clr Drug Dosing 74.5 72.1 Est GFR ( Amer) 101.7 99.7 Est GFR (Non-Af Amer) 87.7 86.0 BUN/Creatinine Ratio 17.5 19.4 Glucose 133 H 105 H Calcium 9.8 9.5 Phosphorus 5.2 H Magnesium 2.0 2.0 Total Bilirubin 0.3 AST 27 ALT 25 Alkaline Phosphatase 104 Troponin I High Sens 6.9 Total Protein 7.5 Albumin 4.4 Globulin 3.1 Albumin/Globulin Ratio 1.4 TSH 3.366 Urine Color Yellow Urine Appearance Clear Urine pH 8.0 H Ur Specific [place] 1.007 Urine Protein Negative Urine Glucose (UA) Negative Urine Ketones 1+ H Urine Blood 1+ H Urine Nitrite Negative Urine Bilirubin Negative Urine Urobilinogen Negative Ur Leukocyte Esterase Trace H Urine WBC (Auto) 0-5 Urine RBC (Auto) 3-5 H U Hyaline Cast (Auto) 0-2 U Epithel Cells (Auto) 0-2 Urine Bacteria (Auto) None Seen Diagnostic Findings Echocardiogram 09/13/2023 Moderate left ventricular hypertrophy with normal wall motion and overall ejection fraction EF 55-60% Grade 1 diastolic dysfunction Aortic sclerosis without stenosis
--- NOTE | 2023-09-13 14:29 | Hospitalist Progress Note ---
Date of Service September 13, 2023 Assessment & Plan (1) Atrial fibrillation, new onset: Plan: Pt is a 77yoF with PMHx significant for hypothyroidism, HLD, esophagitis, CKD, Vit D deficiency, Osteoporosis, Atopic dermatitis who presented for lower back pain but was found to be in rapid a fib. Paroxysmal Atrial Fibrillation with RVR Pt noted to have HR as high as the 170s, symptomatic She notes she has been having palpitations periodically for a few years, did not follow up with pcp about this TSH wnl Received 2 doses of diltiazem 10mg with conversion to sinus rhythm in the ED Remained in sinus rhythm this morning Denies any cardiac symptoms Appreciate cardiology input and recommendation Echo of the heart: LV is normal in size, moderate concentric LVH, LV wall motion is normal, EF 55 to 60%, grade 1 diastolic dysfunction, aortic valve sclerosis without significant stenosis and left atrial size is normal Started with metoprolol succinate 25 mg daily and Eliquis is started (2) Lumbar radiculopathy: Plan: Degenerative Disk Disease, Mild to moderate Disc bulge and herniation, L4-L5 Pt with recent MRI lumbar spine done on 09/05/23 in [facility] Noted the following: -mild to moderate multilevel DDD -L4 to L5 disc bulge, large disc herniation on L with high grade canal stenosis -mild R and moderate L foraminal narrowing -no suggestion of bone marrow edema, soft tissue or ligamentous injury Complains to have radiation of the pain to the left leg, without significant weakness Does not have any bladder and/or bowel problem Awaiting orthospine evaluation Pain control, PT/OT (3) Interstitial lung disease: Plan: Lung Density Chronic Interstitial thickening Chest XRAY noting RUL density Read as likely artifact and followup PA/lateral chest XRAY recommended Has exertional shortness of breath Has not been on any oxygen at home CT of the chest showed:1. Diffuse subpleural reticulation with mild traction bronchiectasis. 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 2. No discrete solid nodule to correspond to the finding on chest radiograph of September 12, 2023. This was artifactual. 3. Scattered groundglass opacities. These are likely related to interstitial lung disease although a mild superimposed infectious process could appear similar. No consolidation. 4. Mild dilatation of the central pulmonary arteries which raises the possibility of pulmonary arterial hypertension. No acute shortness of breath at rest Will continue with current nebulizer as needed Likely discharge on bronchodilator inhaler Will need outpatient pulmonary follow-up Plan Diet: HH DVT prophylaxis: Lovenox SQ Dispo: PCU/tele CODE STATUS DNR/DNI Admission and Anticipated Discharge Date Admission Date: September 12, 2023 Subjective 09/13/2023 The patient was seen and examined in telemetry unit Presented to ER with back pain with history of occasional palpitation and dizziness and also exertional shortness of breath Noted to have A-fib with RVR on top of her ongoing back pain Pain seems to be better in the hospital and reverted to sinus rhythm Review of Systems Review of Systems: All systems reviewed and are unremarkable except as noted below Physical Exam Physical Exam: Lying in bed without any acute distress Constitutional: well developed, well nourished, + ill appearing and average body habitus Eyes: PERRL, conjunctivae normal, anicteric sclerae ENMT: external ear and nose normal, oropharynx normal Neck: trachea midline, no thyromegaly Respiratory: no respiratory distress Auscultation: + diminished lung sounds and + crackles (Bibasilar crackles) Cardiovascular: Rate/Rhythm: regular rate and regular rhythm; not tachycardic Heart Sounds: normal S1 and normal S2; no murmur Extremities: no edema Gastrointestinal (Abdomen): Inspection/Auscultation: normal bowel sounds; abdomen not distended Percussion/Palpation: abdomen soft; abdomen nontender Musculoskeletal: No acute arthritis involving any of the joint Neurologic: normal touch/pain/proprioception and moves all extremities; no focal motor deficits Psychiatric: A+Ox3, euthymic affect Lymphatic: no cervical or axillary lymphadenopathy Results & Data Results & Data Vital Signs (Past 12 Hours) Vital Signs Temp Pulse Pulse Resp BP Pulse Ox O2 Del Method 09/13/23 10:58 36.3 C L 76 17 143/83 H 92 Room Air 09/13/23 09:38 66 09/13/23 09:38 Room Air 09/13/23 07:33 36.5 C 64 17 122/76 95 Room Air 09/13/23 04:21 36.4 C L 69 18 149/75 H 94 Room Air Laboratory Results Short CBC 09/12/23 09/13/23 Range/Units 16:09 06:02 WBC 8.65 6.99 (4.8-10.8) K/ul Hgb 15.0 12.9 (12.0-16.0) g/dl Hct 44.4 38.7 (37.0-47.0) % Plt Count 373 335 (130-400) K/uL BMP 09/12/23 09/13/23 16:09 06:02 Sodium 141 141 Potassium 3.9 3.9 Chloride 105 103 Carbon Dioxide 27 32 BUN 11 13 Creatinine 0.63 0.67 Glucose 133 H 105 H Calcium 9.8 9.5 Liver Function 09/12/23 Range/Units 16:09 Total Bilirubin 0.3 (0.2-1.0) mg/dl AST 27 (13-39) U/L ALT 25 (7-52) U/L Alkaline Phosphatase 104 (34-104) U/L Albumin 4.4 (3.4-5.0) gm/dl Urine 09/12/23 Range/Units 19:26 Urine Color Yellow Urine Appearance Clear (Clear) Urine pH 8.0 H (4.5-7.5) Ur Specific [place] 1.007 (1.000-1.030) Urine Protein Negative (Negative) Urine Glucose (UA) Negative (Negative) Medications Administered Current Inpatient Medications Acetaminophen (Acetaminophen 500 Mg Tab) 1,000 mg PO Q8H PRN PRN Reason: mild pain Stop: 10/12/23 21:37 Albuterol (Albut/Ipratrop 3mg/0.5mg Neb 3 Ml Vial) 3 ml NEB QIDR PRN; Protocol PRN Reason: sob or wheezing Stop: 10/12/23 21:37 Atorvastatin Calcium (Atorvastatin 20 Mg Tab) 20 mg PO QAM TIMOTHY Stop: 10/13/23 08:59 Last Admin: 09/13/23 08:57 Dose: Not Given Baclofen (Baclofen 10 Mg Tab) 10 mg PO HS PRN PRN Reason: Back pain Stop: 10/12/23 21:37 Docusate Sodium (Docusate Sodium 100 Mg Cap) 100 mg PO BID TIMOTHY Stop: 10/13/23 08:59 Last Admin: 09/13/23 08:56 Dose: 100 mg Enoxaparin Sodium (Enoxaparin Inj 40 Mg/0.4 Ml Syr) 40 mg SQ Q24H TIMOTHY Stop: 10/12/23 21:59 Last Admin: 09/12/23 22:43 Dose: 40 mg Fluoxetine HCl (Fluoxetine Hcl 20 Mg Cap) 20 mg PO QAM [facility] Stop: 10/13/23 08:59 Last Admin: 09/13/23 08:57 Dose: 20 mg Hydroxyzine HCl (Hydroxyzine Hcl 25 Mg Tab) 25 mg PO Q6 PRN PRN Reason: Panic Attack(S) Stop: 10/12/23 21:37 Ketorolac Tromethamine (Ketorolac Tromethamine 15 Mg/Ml Vial) 15 mg IV Q6H PRN PRN Reason: Moderate Pain (Scale 4, 5, 6) Stop: 09/17/23 21:37 Last Admin: 09/13/23 14:29 Dose: 15 mg Melatonin (Melatonin 3 Mg Tab) 3 mg PO HS PRN PRN Reason: Sleep Stop: 10/13/23 01:21 Last Admin: 09/13/23 02:52 Dose: 3 mg Ondansetron HCl (Ondansetron Inj 2 Mg/Ml 2 Ml Vial) 4 mg IV Q6H PRN PRN Reason: Nausea And Vomiting Stop: 10/12/23 21:37 Oxycodone HCl (Oxycodone Hcl Ir 5 Mg Tab (Immediate Release)) 5 mg PO Q8H PRN PRN Reason: Severe Pain (Scale 7, 8, 9,10) Stop: 09/26/23 21:37 Last Admin: 09/13/23 08:56 Dose: 5 mg Polyethylene Glycol (Polyethylene (Miralax) 17 Gm Pack) 17 gm PO DAILY PRN PRN Reason: Constipation Stop: 10/12/23 21:37 Vitamin D (Cholecalciferol 25 Mcg (1000 Units) Tab) [facility] [place] Stop: 10/13/23 08:59 Last Admin: 09/13/23 08:57 Dose: 50 mcg
--- NOTE | 2023-09-13 17:44 | Electrocardiogram Report ---
Test Reason : Blood Pressure : / mmHG Vent. Rate : 086 BPM Atrial Rate : 086 BPM P-R Int : 168 ms QRS Dur : 080 ms QT Int : 372 ms P-R-T Axes : 052 -10 027 degrees QTc Int : 445 ms Normal sinus rhythm Normal ECG When compared with ECG of 12-SEP-2023 16:03, Sinus rhythm has replaced Atrial fibrillation Vent. rate has decreased BY [address] no longer depressed in Anterolateral leads Confirmed by Roland Andres ([id number]) on 09/13/2023 5:44:19 PM Referred By: NO PCP Confirmed By:Roland Andres
[2023-09-14 07:09] LABS: Basophils # (auto) 0.05 K/uL (0.00-0.20); Basophils % (auto) 0.7 %; Eosinophils # (auto) 0.56 K/uL (0.00-0.50); Eosinophils % (auto) 8.4 %; Hematocrit (blood only) 37.4 % (37.0-47.0); Hemoglobin 12.7 g/dl (12.0-16.0); Immature Granulocytes # (auto) 0.02 K/uL (0.01-0.20); Immature Granulocytes % (auto) 0.3 %; Mean Corpuscular Hemoglobin 31.1 pg (25.0-34.0); Mean Corpuscular Volume 91.7 fL (80.0-100.0); Mean Platelet Volume 9.8 fL (9.4-12.4); Monocytes # (auto) 0.42 K/uL (0.11-0.59); Monocytes % (auto) 6.3 %; Neutrophils # (auto) 4.22 K/uL (1.40-6.50); Neutrophils % (auto) 63.3 %; Platelet Count 309 K/uL (130-400); RDW Coefficient of Variation 12.2 % (11.5-14.5); RDW Standard Deviation 40.6 fL (36.4-46.3); Red Blood Count 4.08 M/uL (4.20-5.40); White Blood Count 6.67 K/ul (4.8-10.8)
[2023-09-14 07:36] LABS: Calcium 9.4 mg/dl (8.6-10.3); Creatinine Clr Calc Pharmacy 69.9 ml/min; Est GFR (African American) 98.5 ml/min; Potassium 4.3 mmol/L (3.5-5.1)
[2023-09-14] MEDS ORDERED: valACYclovir HCL 500 MG TABLET PO SCH (09:00)
--- NOTE | 2023-09-14 09:51 | Orthopedic Consultation ---
Date of Consultation September 14, 2023 Assessment & Plan (1) Lumbar disc herniation with radiculopathy: Assessment lumbar disc herniation with severe spinal stenosis and radiculopathy L4-L5. Plan in length yesterday with the patient reviewing her MRI findings and clinical course. This time MRI performed recently is has been reviewed. It demonstrates a massive disc herniation L4-5 that is migrated to the dorsal aspect of the thecal sac. Is predominantly on the left side but certainly encroaches over to the right. She has severe disc space collapse and Modic disease as well at the 4 5 level. Subsequently recommending wide decompression including bilateral medial facetectomies to safely and adequately decompress the canal and adequately remove the disc herniation. This would contribute to significant instability and subsequently I would recommend a fusion. Patient understands and agrees. Risk benefits pros cons alternatives were all in detail. Risk include but not limited to anesthesia blindness stroke paralysis nerve damage blood loss requiring transfusion infection requiring reo peration passively marked improvement of her back and leg symptoms. Will make her n.p.o. after midnight. I have held her Lovenox. History of Present Illness Reason for Consultation: Back and left leg pain Attending Physician: Devendra Betancourt MD History of Present Illness This is a 78-year-old female who presents with severe back and leg pain. She states been present for several weeks. Markedly limited her ability to ambulate. She describes cold sensation numbness and tingling down the left lower extremity with breakaway weakness. She was admitted for pain control she is unable to tolerate her symptoms at home. Allergies Allergy/AdvReac Type Severity Reaction Status Date / Time sertraline Allergy Intermediate RASH Verified 09/12/23 17:43 prednisone AdvReac Unknown MADE PT Verified 09/12/23 17:43 FEEL ILL Home Medications Medication Instructions Recorded Confirmed Type fluoxetine 20 mg capsule 20 mg PO QAM 11/06/20 09/12/23 History cholecalciferol (vitamin D3) 50 50 mcg PO QAM 06/27/23 09/12/23 History mcg (2,000 unit) tablet (Vitamin D3) atorvastatin 20 mg tablet 20 mg PO QAM 09/12/23 09/12/23 History baclofen 10 mg tablet 10 mg PO HS PRN Back Pain 09/12/23 09/12/23 History hydroxyzine HCl 25 mg tablet 25 mg PO Q6 PRN Panic Attack(S) 09/12/23 09/12/23 History valacyclovir 1 gram tablet 1,000 mg PO QAM PRN Outbreak 09/12/23 09/13/23 History Patient History Medical History Vitamin D deficiency 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 Senile osteoporosis Rosacea Obesity Mixed dyslipidemia Mitral valve disorder HSV-2 (herpes simplex virus 2) infection Hematuria Chronic reflux esophagitis Choledocholithiasis Adjustment disorder with depressed mood Acquired hypothyroidism Surgical History H/O: hysterectomy History of cholecystectomy Hx of appendectomy Hx of salpingo-oophorectomy, bilateral Family History Mother Alzheimer disease Stroke Sister Arthritis Grandmother (Maternal) Benign neoplasm of brain Aunt Asthma Social History Smoking Status: Former smoker Hx Alcohol Use: No Hx Substance Use: No Preferred Language: Nigerian Communication Ability: Effective Biophysics Professor Required: No Beliefs That Will Affect Care: None Current Living Situation: Significant Other Current Living Situation Comment: lives with Wolf Rodriguez Other Information That Helps Us Care for You: No Feels Safe at Home: Yes Safety Concerns: Feels Safe At This Time Assistive Devices: Glasses and Walker Physical Exam Physical Exam: On exam she is comfortable while sitting in bed but has to shift position constantly secondary to back pain. She exhibits reasonable but breakaway strength to the left lower extremity. She is 5/5 strength of the right lower extremity. Sensory is markedly diminished to left lower extremity. Deep tendon reflexes absent. Significant tension signs straight leg raising bilaterally. Results & Data Vital Signs (Past 12 Hours) Vital Signs Temp Pulse Pulse Resp BP Pulse Ox O2 Del Method 09/14/23 08:45 56 L 09/14/23 08:45 Room Air 09/14/23 07:18 36.7 C 66 17 154/82 H 94 Room Air 09/14/23 02:44 36.6 C 57 L 18 143/81 H 90 Room Air 09/13/23 22:39 36.9 C 64 18 131/63 93 Room Air 09/13/23 22:00 64
[2023-09-14] MEDS: SOD PHOSPHATE/SOD BIPHOSPHATE ENEMA 132 ML BTL PR STA (12:34)
--- NOTE | 2023-09-14 18:23 | Hospitalist Progress Note ---
Date of Service September 14, 2023 Assessment & Plan (1) Atrial fibrillation, new onset: Plan: Pt is a 77yoF with PMHx significant for hypothyroidism, HLD, esophagitis, CKD, Vit D deficiency, Osteoporosis, Atopic dermatitis who presented for lower back pain but was found to be in rapid a fib. Paroxysmal Atrial Fibrillation with RVR TSH wnl --ECHO: Left ventricle is normal in size. Moderate concentric LVH. Left ventricle wall motion is normal. EF 55 to 60%. Grade 1 diastolic dysfunction. Aortic valve sclerosis mild, without significant stenosis. Left atrial size is normal. Received 2 doses of diltiazem 10mg with conversion to sinus rhythm in the ED Remained in sinus rhythm Some PVCs on monitor Appreciate cardiology input and recommendation Started on metoprolol succinate 25 mg daily Will need to start on Eliquis as able after lower back surgery Appreciate cardiology input Needs follow-up with cardiology on discharge (2) Lumbar radiculopathy: Plan: Lumbar disc herniation with radiculopathy Disc bulge and herniation, L4-L5 Pt with recent MRI lumbar spine done on 09/05/23 in [facility]:-mild to moderate multilevel DDD. L4 to L5 disc bulge, large disc herniation on L with high grade canal stenosis. mild R and moderate L foraminal narrowing. no suggestion of bone marrow edema, soft tissue or ligamentous injury -- Plan for lumbar surgery tomorrow N.p.o. after midnight Constipation continue bowel regimen (3) Interstitial lung disease: Plan: Chronic Interstitial thickening --CT Chest: Diffuse subpleural reticulation with mild traction bronchiectasis. 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 No discrete solid nodule to correspond to the finding on chest radiograph of September 12, 2023. This was artifactual. Scattered groundglass opacities. These are likely related to interstitial lung disease although a mild superimposed infectious process could appear similar. No consolidation. Mild dilatation of the central pulmonary arteries which raises the possibility of pulmonary arterial hypertension. -- Currently denies any respiratory symptoms --Recommend outpatient follow-up with pulmonology Plan DVT Px: Lovenox SQ--Held for surgery CODE STATUS DNR/DNI Admission and Anticipated Discharge Date Admission Date: September 12, 2023 Subjective Patient is seen and examined at bedside States having lower back pain Also reports constipation Denies any chest pain, dyspnea, dizziness, nausea, vomiting Review of Systems Review of Systems: All systems reviewed & are unremarkable except as noted in Subjective Physical Exam Physical Exam: Physical Exam: Vitals signs as noted above General Appearance:Moderately built and nourished, no apparent distress Head: normocephalic, Atraumatic Eyes: normal inspection, EOMI Neck: supple, Trachea midline Respiratory/Chest: Decreased breath sounds, +Crackles, No accessory muscle use Cardiovascular: S1, S2, No murmur Abdomen/GI:Soft, Non tender, Bowel sounds present Extremities/Musculoskeletal:normal inspection, R foot edema Neurologic/Psych:AAOX3, grossly no focal neurological deficits Skin: normal color, warm Results & Data Results & Data Vital Signs (Past 12 Hours) Vital Signs Temp Pulse Pulse Resp BP Pulse Ox O2 Del Method 09/14/23 15:56 36.7 C 89 17 126/84 96 Room Air 09/14/23 15:49 36.7 C 54 L 20 137/83 96 Room Air 09/14/23 15:33 64 09/14/23 11:10 36.5 C 70 17 161/93 H 95 Room Air 09/14/23 08:45 56 L 09/14/23 08:45 Room Air 09/14/23 07:18 36.7 C 66 17 154/82 H 94 Room Air Laboratory Results Short CBC 09/14/23 Range/Units 06:34 WBC 6.67 (4.8-10.8) K/ul Hgb 12.7 (12.0-16.0) g/dl Hct 37.4 (37.0-47.0) % Plt Count 309 (130-400) K/uL BMP 09/14/23 06:34 Sodium 139 Potassium 4.3 Chloride 102 Carbon Dioxide 32 BUN 17 Creatinine 0.68 Glucose 108 H Calcium 9.4
[2023-09-14] MEDS ORDERED: Nursing to Pharmacy Communication SCH (18:30)
[2023-09-14] MEDS: SOD PHOSPHATE/SOD BIPHOSPHATE ENEMA 132 ML BTL PR ONE ×2 (18:32→19:43)
[2023-09-14] MEDS: BACLOFEN 10 MG TAB PO PRN (19:43)
[2023-09-14] MEDS: METOPROLOL SUCC 25MG EXT REL TAB PO SCH (19:44)
[2023-09-15] MEDS: LACTATED RINGER'S 1,000 ML IV SCH ×2 (06:07→12:01)
[2023-09-15] MEDS ORDERED: ROCURONIUM BROMIDE 10 MG/ML 5 ML VIAL IV ONE (06:49)
[2023-09-15] MEDS ORDERED: LIDOCAINE 2% 2 ML VIAL/AMP(20MG/ML) INFIL ONE (06:49)
[2023-09-15] MEDS ORDERED: ONDANSETRON INJ 2 MG/ML 2 ML VIAL ONE (06:49)
[2023-09-15] MEDS ORDERED: PROPOFOL IV EMULSION 10 MG/ML 20 ML VIAL IV ONE (06:49)
[2023-09-15] MEDS ORDERED: fentaNYL citrate PF 100 MCG/2 ML VIAL ONE ×2 (06:49→09:15)
--- NOTE | 2023-09-15 06:53 | Anesthesiology Consultation ---
Date of Service September 15, 2023 Assessment & Plan (1) Encounter for pre-operative examination: Chart Review Chart Review: Acceptable Risk for Surgery History Surgery Operation Date: 09/15/23 07:45 Proposed Procedures p L4-L5 Decompression and Fusion, Spinal Cord Monitoring - Sai Drake DO Height/Weight Height: 5 ft 4 in Weight: 75.3 kg Allergies Allergy/AdvReac Type Severity Reaction Status Date / Time sertraline Allergy Intermediate RASH Verified 09/12/23 17:43 prednisone AdvReac Unknown MADE PT Verified 09/12/23 17:43 FEEL ILL Medications Home Medications Medication Instructions Recorded Confirmed Last Taken fluoxetine 20 mg capsule 20 mg PO QAM 11/06/20 09/12/23 06/27/23 cholecalciferol (vitamin D3) 50 50 mcg PO QAM 06/27/23 09/12/23 06/27/23 mcg (2,000 unit) tablet (Vitamin D3) atorvastatin 20 mg tablet 20 mg PO QAM 09/12/23 09/12/23 Unknown baclofen 10 mg tablet 10 mg PO HS PRN Back Pain 09/12/23 09/12/23 Unknown hydroxyzine HCl 25 mg tablet 25 mg PO Q6 PRN Panic Attack(S) 09/12/23 09/12/23 Unknown valacyclovir 1 gram tablet 1,000 mg PO QAM PRN Outbreak 09/12/23 09/13/23 Unknown Active Medications Generic Name Dose Route Start Last Admin Trade Name Freq PRN Reason Stop Dose Admin Atorvastatin Calcium 20 mg 09/13/23 09:00 09/14/23 08:35 Atorvastatin 20 Mg Tab PO 10/13/23 08:59 Not Given QAM TIMOTHY Baclofen 10 mg 09/12/23 21:38 09/14/23 19:43 Baclofen 10 Mg Tab PO 10/12/23 21:37 10 mg HS PRN Administration Back pain Docusate Sodium 100 mg 09/13/23 09:00 09/14/23 19:44 Docusate Sodium 100 Mg Cap PO 10/13/23 08:59 100 mg BID TIMOTHY Administration Fluoxetine HCl 20 mg 09/13/23 09:00 09/14/23 08:34 Fluoxetine Hcl 20 Mg Cap PO 10/13/23 08:59 20 mg QAM TIMOTHY Administration Lactated Ringer's 1,000 mls @ 15 mls/hr 09/15/23 06:00 09/15/23 06:07 Lr IV 10/15/23 05:59 15 mls/hr .Q24H TIMOTHY Administration Ketorolac Tromethamine 15 mg 09/12/23 21:38 09/15/23 03:16 Ketorolac Tromethamine 15 Mg/Ml Vial IV 09/17/23 21:37 15 mg Q6H PRN Administration Moderate Pain (Scale 4, 5, 6) Melatonin 3 mg 09/13/23 01:22 09/13/23 21:12 Melatonin 3 Mg Tab PO 10/13/23 01:21 3 mg HS PRN Administration Sleep Metoprolol Succinate 25 mg 09/14/23 18:20 09/14/23 19:44 Metoprolol Succ 25mg Ext Rel Tab PO 10/14/23 18:19 25 mg QAM TIMOTHY Administration Oxycodone HCl 5 mg 09/12/23 21:38 09/15/23 01:52 Oxycodone Hcl Ir 5 Mg Tab (Immediate Release) PO 09/26/23 21:37 5 mg Q8H PRN Administration Severe Pain (Scale 7, 8, 9,10) Vitamin D 50 mcg 09/13/23 09:00 09/14/23 08:34 Cholecalciferol 25 Mcg (1000 Units) Tab PO 10/13/23 08:59 50 mcg QAM TIMOTHY Administration Past Medical History Medical History (Updated 09/15/23 @ 06:55 by Ortiz Steen MD) Paroxysmal atrial fibrillation Lumbosacral radiculopathy Vitamin D deficiency 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 Senile osteoporosis Rosacea Mixed dyslipidemia HSV-2 (herpes simplex virus 2) infection Hematuria Chronic reflux esophagitis Choledocholithiasis Adjustment disorder with depressed mood Acquired hypothyroidism Past Family History Family History Mother Alzheimer disease Stroke Sister Arthritis Grandmother (Maternal) Benign neoplasm of brain Aunt Asthma Past Surgical History Surgical History H/O: hysterectomy History of cholecystectomy Hx of appendectomy Hx of salpingo-oophorectomy, bilateral Social History Smoking Status: Former smoker Hx Alcohol Use: No Hx Substance Use: No Physical Exam Vital Signs Last Vital Signs Temp 36.8 C 09/15/23 03:13 Pulse 61 09/15/23 03:13 Resp 18 09/15/23 03:13 BP 156/71 H 09/15/23 03:13 Pulse Ox 93 09/15/23 03:13 O2 Del Method Room Air 09/15/23 03:13 Testing Laboratory Results PT 10.4 Seconds (9.0-12.0) 09/12/23 16:09 INR 1.0 (0.9-1.1) 09/12/23 16:09 APTT 28 Seconds (21-31) 09/12/23 16:09 Urine Color Yellow 09/12/23 19:26 Urine Appearance Clear (Clear) 09/12/23 19:26 Urine pH 8.0 (4.5-7.5) H 09/12/23 19:26 Ur Specific Guin 1.007 (1.000-1.030) 09/12/23 19:26 Urine Protein Negative (Negative) 09/12/23 19:26 Urine Glucose (UA) Negative (Negative) 09/12/23 19:26 Urine Ketones 1+ (Negative) H 09/12/23 19:26 Urine Nitrite Negative (Negative) 09/12/23 19:26 Ur Leukocyte Esterase Trace (Negative) H 09/12/23 19:26 Urine WBC (Auto) 0-5 /hpf (0-5) 09/12/23 19:26 Urine RBC (Auto) 3-5 /hpf (0-2) H 09/12/23 19:26 U Hyaline Cast (Auto) 0-2 /lpf (0-2) 09/12/23 19:26 U Epithel Cells (Auto) 0-2 /hpf (0-2) 09/12/23 19:26 Urine Bacteria (Auto) None Seen (None Seen) 09/12/23 19:26 Laboratory Tests 09/14/23 06:34 Hgb 12.7 Plt Count 309 Potassium 4.3 Creatinine 0.68 Electrocardiogram Date: 09/12/23 Findings: + NSR @ (86) Echocardiogram Date: 09/13/23 EF: 55-60% LV Function: normal Other Findings: + LVH (moderate) Valvular Disease: + no significant valvular disease
[2023-09-15 06:55] LABS: Hematocrit (blood only) 42.8 % (37.0-47.0); Hemoglobin 14.2 g/dl (12.0-16.0); Mean Corpuscular Hemoglobin 30.1 pg (25.0-34.0); Mean Corpuscular Hgb Conc 33.2 g/dL (32.0-36.0); Mean Corpuscular Volume 90.9 fL (80.0-100.0); Mean Platelet Volume 9.5 fL (9.4-12.4); Platelet Count 382 K/uL (130-400); RDW Standard Deviation 39.9 fL (36.4-46.3); Red Blood Count 4.71 M/uL (4.20-5.40); White Blood Count 8.38 K/ul (4.8-10.8)
[2023-09-15] MEDS ORDERED: LABETALOL HCL IV 5 MG/ML 20ML IV PRN (07:12)
[2023-09-15] MEDS ORDERED: ATROPINE SULFATE 0.1 MG/ML 10ML SYR IV PRN (07:12)
[2023-09-15] MEDS ORDERED: PROMETHAZINE HCL 6.25 MG in SODIUM CHLORIDE 0.9% 50 ML IV PRN (07:12)
[2023-09-15 07:16] LABS: BUN Creatinine Ratio 27.9 (10-20); Calcium 9.6 mg/dl (8.6-10.3); Creatinine Clr Calc Pharmacy 69.9 ml/min; Est GFR (African American) 98.5 ml/min; Potassium 3.8 mmol/L (3.5-5.1)
--- NOTE | 2023-09-15 07:46 | History & Physical Bridge Note ---
Date of Service September 15, 2023 History & Physical Bridge Note I have examined the patient, reviewed the History & Physical and in the interval since the performance of the History & Physical I have noted the following changes of clinical significance: no changes noted Lumbar decompression and fusion L4-L5
[2023-09-15] MEDS ORDERED: ceFAZolin 330 MG/ML 1 GM VIAL ONE (08:26)
[2023-09-15] MEDS ORDERED: ePHEDrine sulfate 50 MG/5 ML SYR ONE (08:26)
[2023-09-15] MEDS ORDERED: DEXAMETHASONE SOD INJ 4 MG/ML VIAL ONE (08:26)
[2023-09-15] MEDS: BUPIVACAINE/EPINEPHRINE 0.25% 1:200,000 30 ML VIAL ONE (08:34)
[2023-09-15] MEDS: ceFAZolin 330 MG/ML 1 GM VIAL ONE (08:35)
[2023-09-15] MEDS ORDERED: SUGAMMADEX SODIUM 200 MG/2 ML VIAL IV ONE (08:59)
[2023-09-15] MEDS ORDERED: bisacodyL 10 MG SUPP PR PRN ×2 (09:00→11:34)
[2023-09-15] MEDS: FLOSEAL HEMOSTATIC MATRIX 10ML TOP ONE (09:13)
--- NOTE | 2023-09-15 09:21 | Operative Report ---
Post Operative Report Pre & Post Diagnosis Operation Date: 09/15/23 07:45 Pre-Op Diagnosis: (1) Lumbar disc herniation with radiculopathy #2 lumbar spinal stenosis Post-Op Diagnosis: Same I identified the patient and participated in the time-out.: Yes Procedure Operation Date: 09/15/23 07:45 Actual Procedures #1 lumbar decompression with bilateral medial facetectomies and foraminotomies L3-L4 L4-L5. #2 posterior spinal fusion L4-L5. #3 placed posterior instrumentation L4-5. #4 interbody fusion L4-5 and #5 placement spiral 14 x 26 mm x 2 at L4-5. #6 placement locally harvested morselized autograft in the posterior gutters. #7 placement of infuse collagen sponge, with Koros bone graft in the posterior lateral gutters and Morpheus bone graft interbody space. Surgeon Sai Drake, Housekeeper/Custodian/Laundry Worker Marni Ballard Estimated Blood Loss 50 Findings Consistent with Post-Op Diagnosis Specimens None Indications This is a 78-year-old female the presents with severe pain and massive disc herniation spinal canal compromising her function. Subsequently she is here for surgical intervention. Description of Procedure Patient was met with identified informed consent obtained. Patient was then taken to the operative suite underwent patient placed in a prone position the [place] table top [place] frame. All bony prominences well-padded eyes inspected to ensure no external precipice spinal. This point lumbar spine was prepped and draped in a sterile fashion. Sharp dissection with the assistance of Bovie cautery to form down to and exposing the lamina and transverse processes of L4- L5. From caudal cephalad fashion complete laminectomy L4 partial laminectomy L3 was performed including bilateral medial facetectomies and and foraminotomies L3-L4 L4-5. Massive disc herniation was identified emanating from the left side of the L4-5 disc. It migrated to the dorsal side of the canal compressing the thecal sac. Disc was removed in its entirety. Pedicle screws were then placed in L4-L5 bilaterally with assistance of fluoroscopy by way of transforaminal approach on the left a discectomy of L4-5 was performed endplates guided to subcortical bleeding bone and a 14 x 26 mm spiral cage filled with Morpheus bone graft tapped in position. Then proceeded to the right transforaminal region completed the discectomy endplates guided to subcortical bleeding bone and a second 14 x 26 mm spiral cage filled with Morpheus bone graft tapped in position. The rods were then compressed locked in the final position bilaterally. The transverse processes of L4-5 burred to subcortical bleeding bone. Infuse collagen sponge combined with Koros bone graft and locally harvested morselized autograft placed in the posterior lateral gutters. 15 round CATE inserted. The incision was then closed with 1 Vicryl in the fascia 2-0 Vicryl subcutaneously and 4 Monocryl for final closure. Steri-Strips sterile dressings placed. Patient waken taken to PACU stable condition. Please note spinal cord monitoring was utilized at the procedure no changes noted. Lastly Marni Ballard was present at the entire surgery on the patient positioning complex portion of the surgery and fashion closure. I attest to the content of the Intraoperative Record and any orders documented therein. Any exceptions are noted below.
[2023-09-15] MEDS: HYDROmorphone INJ 1 MG/ML SYRINGE IV PRN ×2 (09:45→23:19)
--- NOTE | 2023-09-15 10:04 | Fluoroscopy Report ---
FL lumbar spine 2-3V CLINICAL HISTORY: L4-L5 DECOMPRESSION AND FUSION COMPARISON STUDY: Lumbar spine CT June 27, 2023. FLUOROSCOPY TIME: 14 seconds. Ka,r : 12.10 mGy FLUOROSCOPIC IMAGES: 2 FINDINGS: Fluoroscopy was provided during L4-L5 decompression, discectomy and bilateral pedicle screw fusion. Hardware is intact. No unexpected radiopaque foreign bodies are present. IMPRESSION: Fluoroscopy provided during L4-L5 decompression, discectomy and bilateral pedicle screw fusion. ACT 112: Negative or not required by law. Electronically signed by: Adama Muir M.D. 09/15/2023 10:03 AM
[2023-09-15] MEDS ORDERED: HYDROmorphone INJ 0.5 MG/0.5 ML SYR IV SCH (10:30)
--- NOTE | 2023-09-15 10:37 | Anesthesiology Progress Note ---
Date of Service September 15, 2023 Anesthesia Post Procedure Vital Signs Vital Signs: Temp Pulse Pulse Resp BP Pulse Ox O2 Del Method 09/15/23 10:35 36.4 C L 71 15 124/69 100 Nasal Cannula 09/15/23 10:25 77 15 128/68 100 Nasal Cannula 09/15/23 10:15 78 15 158/52 H 100 Nasal Cannula 09/15/23 10:05 75 17 115/79 100 Nasal Cannula 09/15/23 09:55 62 17 118/57 L 100 Nasal Cannula 09/15/23 09:45 62 17 147/66 H 100 Oxymask 09/15/23 09:36 36.2 C L 65 17 115/80 100 Oxymask 09/15/23 06:51 36.6 C 62 20 203/75 H 96 Room Air 09/15/23 03:13 36.8 C 61 18 156/71 H 93 Room Air 09/14/23 22:57 58 L 09/14/23 22:41 36.8 C 63 20 171/85 H 92 Room Air 09/14/23 19:30 Room Air 09/14/23 19:14 36.6 C 85 18 172/84 H 94 Room Air 09/14/23 15:56 36.7 C 89 17 126/84 96 Room Air 09/14/23 15:49 36.7 C 54 L 20 137/83 96 Room Air 09/14/23 15:33 64 09/14/23 11:10 36.5 C 70 17 161/93 H 95 Room Air O2 Flow Rate 09/15/23 10:35 4 09/15/23 10:25 4 09/15/23 10:15 4 09/15/23 10:05 4 09/15/23 09:55 4 09/15/23 09:45 5 09/15/23 09:36 5 09/15/23 06:51 09/15/23 03:13 09/14/23 22:57 09/14/23 22:41 09/14/23 19:30 09/14/23 19:14 09/14/23 15:56 09/14/23 15:49 09/14/23 15:33 09/14/23 11:10 Pain Intensity Lower Back: Pain Intensity: 6 Transfer of Care Handoff Completed per policy Notes Mental Status: alert / awake / arousable Patient Amnestic to Procedure: Yes Nausea / Vomiting: adequately controlled Pain: adequately controlled Airway Patency, RR, SpO2: stable & adequate BP & HR: stable & adequate Hydration State: stable & adequate Anesthetic Complications: no major complications apparent
[2023-09-15] MEDS ORDERED: LORazepam 0.5 MG in SYRINGE 0.25 ML IV PRN (11:34)
[2023-09-15] MEDS ORDERED: LORazepam 0.5 MG TAB PO PRN (11:34)
[2023-09-15] MEDS ORDERED: ONDANSETRON INJ 2 MG/ML 2 ML VIAL IV PRN (11:34)
[2023-09-15] MEDS ORDERED: SOD PHOSPHATE/SOD BIPHOSPHATE ENEMA 132 ML BTL PR PRN (11:34)
[2023-09-15] MEDS ORDERED: PROMETHAZINE HCL 12.5 MG in SODIUM CHLORIDE 0.9% 50 ML IV PRN (11:34)
[2023-09-15] MEDS ORDERED: ALUMINUM/MAGNESIUM SUSP 30 ML UDC PO PRN (11:34)
[2023-09-15] MEDS ORDERED: ONDANSETRON 4 MG OD TAB PO PRN (11:34)
[2023-09-15] MEDS ORDERED: ACETAMINOPHEN 1,000 MG/100 ML VIAL IV PRN (11:34)
[2023-09-15] MEDS ORDERED: MAGNESIUM HYDROXIDE SUSP 30 ML UDC PO PRN (11:34)
[2023-09-15] MEDS ORDERED: diphenhydrAMINE Capsule 25 MG CAP PO PRN (11:34)
[2023-09-15] MEDS ORDERED: FAMOTIDINE 20 MG TAB PO PRN (11:34)
[2023-09-15] MEDS ORDERED: HYDROmorphone INJ 0.5 MG/0.5 ML SYR IV PRN (11:34)
[2023-09-15] MEDS ORDERED: DO NOT ADMINISTER PNEUMOCOCCAL VACCINE PRN (11:34)
[2023-09-15] MEDS ORDERED: DO NOT ADMINISTER FLU VACCINE PRN (11:34)
[2023-09-15] MEDS ORDERED: METOCLOPRAMIDE HCL INJ 5 MG/ML 2 ML VIAL IV PRN (11:34)
[2023-09-15] MEDS ORDERED: NALOXONE HCL 0.4 MG/1 ML VIAL/CARP IV PRN (11:34)
[2023-09-15] MEDS ORDERED: hydrOXYzine HCl 25 MG TAB PO PRN (11:34)
[2023-09-15] MEDS: oxyCODONE HCL IR 5 MG TAB (IMMEDIATE RELEASE) PO PRN (12:27)
[2023-09-15] MEDS: traMADol HCL 50 MG TABLET PO PRN (14:44)
[2023-09-15] MEDS: ceFAZolin 2000MG 2,000 MG/15 ML SYR IV SCH (15:40)
--- NOTE | 2023-09-15 17:50 | Hospitalist Progress Note ---
Date of Service September 15, 2023 Assessment & Plan (1) Atrial fibrillation, new onset: Plan: Pt is a 77yoF with PMHx significant for hypothyroidism, HLD, esophagitis, CKD, Vit D deficiency, Osteoporosis, Atopic dermatitis who presented for lower back pain but was found to be in rapid a fib. Paroxysmal Atrial Fibrillation with RVR TSH wnl --ECHO: Left ventricle is normal in size. Moderate concentric LVH. Left ventricle wall motion is normal. EF 55 to 60%. Grade 1 diastolic dysfunction. Aortic valve sclerosis mild, without significant stenosis. Left atrial size is normal. Received 2 doses of diltiazem 10mg with conversion to sinus rhythm in the ED Remained in sinus rhythm Some PVCs on monitor Appreciate cardiology input and recommendation Started on metoprolol succinate 25 mg daily Will start on Eliquis once cleared by orthopedics Appreciate cardiology input Needs follow-up with cardiology on discharge Continue current management (2) Lumbar radiculopathy: Plan: Lumbar disc herniation with radiculopathy Disc bulge and herniation, L4-L5 Pt with recent MRI lumbar spine done on 09/05/23 in [facility]:-mild to moderate multilevel DDD. L4 to L5 disc bulge, large disc herniation on L with high grade canal stenosis. mild R and moderate L foraminal narrowing. no suggestion of bone marrow edema, soft tissue or ligamentous injury --S/P lumbar decompression, fusion surgery by Dr. Drake on 09/15/2023 PT OT as able Continue bowel regimen Pain control Wound care as per orthopedics Constipation continue bowel regimen (3) Interstitial lung disease: Plan: Chronic Interstitial thickening --CT Chest: Diffuse subpleural reticulation with mild traction bronchiectasis. 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 No discrete solid nodule to correspond to the finding on chest radiograph of September 12, 2023. This was artifactual. Scattered groundglass opacities. These are likely related to interstitial lung disease although a mild superimposed infectious process could appear similar. No consolidation. Mild dilatation of the central pulmonary arteries which raises the possibility of pulmonary arterial hypertension. -- Currently denies any respiratory symptoms --Recommend outpatient follow-up with pulmonology Plan Depression Continue fluoxetine Psychiatry consulted as per patient's request DVT Px: Lovenox SQ--Held for surgery Transition to Eliquis as able CODE STATUS DNR/DNI Admission and Anticipated Discharge Date Admission Date: September 12, 2023 Subjective Patient is seen and examined at bedside Patient had back surgery earlier today Back pain is controlled postoperatively Patient offers no new complaints today Reported feeling depressed to RN Denies any chest pain, dyspnea, dizziness, nausea, vomiting Review of Systems Review of Systems: All systems reviewed & are unremarkable except as noted in Subjective Physical Exam Physical Exam: Physical Exam: Vitals signs as noted above General Appearance:Moderately built and nourished, no apparent distress Head: normocephalic, Atraumatic Eyes: normal inspection, EOMI Neck: supple, Trachea midline Respiratory/Chest: Decreased breath sounds, +Crackles, No accessory muscle use Cardiovascular: S1, S2, No murmur Abdomen/GI:Soft, Non tender, Bowel sounds present Extremities/Musculoskeletal:normal inspection, R foot edema Neurologic/Psych:AAOX3, grossly no focal neurological deficits Skin: normal color, warm Results & Data Results & Data Vital Signs (Past 12 Hours) Vital Signs Temp Pulse Pulse Resp BP Pulse Ox O2 Del Method 09/15/23 14:32 36.6 C 63 16 166/79 H 99 Nasal Cannula 09/15/23 13:35 36.5 C 60 16 149/75 H 96 Nasal Cannula 09/15/23 12:31 36.5 C 73 16 156/81 H 97 Nasal Cannula 09/15/23 12:00 Nasal Cannula 09/15/23 11:58 36.4 C L 71 16 121/74 98 Nasal Cannula 09/15/23 11:34 36.5 C 71 16 121/68 100 Nasal Cannula 09/15/23 11:15 68 16 139/77 100 Nasal Cannula 09/15/23 11:00 77 16 128/64 100 Nasal Cannula 09/15/23 10:45 81 16 130/64 99 Nasal Cannula 09/15/23 10:35 36.4 C L 71 15 124/69 100 Nasal Cannula 09/15/23 10:25 77 15 128/68 100 Nasal Cannula 09/15/23 10:15 78 15 158/52 H 100 Nasal Cannula 09/15/23 10:05 75 17 115/79 100 Nasal Cannula 09/15/23 09:55 62 17 118/57 L 100 Nasal Cannula 09/15/23 09:45 62 17 147/66 H 100 Oxymask 09/15/23 09:36 36.2 C L 65 17 115/80 100 Oxymask 09/15/23 06:51 36.6 C 62 20 203/75 H 96 Room Air O2 Flow Rate 09/15/23 14:32 2 09/15/23 13:35 2 09/15/23 12:31 2 09/15/23 12:00 2 09/15/23 11:58 2 09/15/23 11:34 2 09/15/23 11:15 2 09/15/23 11:00 2 09/15/23 10:45 2 09/15/23 10:35 4 09/15/23 10:25 4 09/15/23 10:15 4 09/15/23 10:05 4 09/15/23 09:55 4 09/15/23 09:45 5 09/15/23 09:36 5 09/15/23 06:51 Laboratory Results Short CBC 09/15/23 Range/Units 06:34 WBC 8.38 (4.8-10.8) K/ul Hgb 14.2 (12.0-16.0) g/dl Hct 42.8 (37.0-47.0) % Plt Count 382 (130-400) K/uL BMP 09/15/23 06:34 Sodium 140 Potassium 3.8 Chloride 102 Carbon Dioxide 33 H BUN 19 Creatinine 0.68 Glucose 118 H Calcium 9.6
[2023-09-15] MEDS: DOCUSATE SODIUM/SENNA 50/8.6MG TAB PO SCH (20:14)
[2023-09-16] MEDS: POLYETHYLENE (MIRALAX) 17 GM PACK PO SCH (05:36)
[2023-09-16 07:39] LABS: Hematocrit (blood only) 33.6 % (37.0-47.0); Hemoglobin 11.1 g/dl (12.0-16.0); Mean Corpuscular Hemoglobin 31.2 pg (25.0-34.0); Mean Corpuscular Volume 94.4 fL (80.0-100.0); Mean Platelet Volume 10.5 fL (9.4-12.4); Platelet Count 322 K/uL (130-400); RDW Coefficient of Variation 12.3 % (11.5-14.5); RDW Standard Deviation 42.4 fL (36.4-46.3); Red Blood Count 3.56 M/uL (4.20-5.40); White Blood Count 9.49 K/ul (4.8-10.8)
[2023-09-16 07:57] LABS: BUN Creatinine Ratio 16.9 (10-20); Calcium 9.1 mg/dl (8.6-10.3); Creatinine Clr Calc Pharmacy 80.6 ml/min; Est GFR (African American) 103.2 ml/min; Potassium 3.9 mmol/L (3.5-5.1)
[2023-09-16] MEDS: dexAMETHasone 6 MG in SYRINGE 0 ML IV SCH (08:32)
--- NOTE | 2023-09-16 18:42 | Hospitalist Progress Note ---
Date of Service September 16, 2023 Assessment & Plan (1) Atrial fibrillation, new onset: Plan: Pt is a 77yoF with PMHx significant for hypothyroidism, HLD, esophagitis, CKD, Vit D deficiency, Osteoporosis, Atopic dermatitis who presented for lower back pain but was found to be in rapid a fib. Paroxysmal Atrial Fibrillation with RVR TSH wnl --ECHO: Left ventricle is normal in size. Moderate concentric LVH. Left ventricle wall motion is normal. EF 55 to 60%. Grade 1 diastolic dysfunction. Aortic valve sclerosis mild, without significant stenosis. Left atrial size is normal. Received 2 doses of diltiazem 10mg with conversion to sinus rhythm in the ED Remained in sinus rhythm Some PVCs on monitor Appreciate cardiology input and recommendation Started on metoprolol succinate 25 mg daily Will start on Eliquis once cleared by orthopedics Appreciate cardiology input Needs follow-up with cardiology on discharge Rate is controlled (2) Lumbar radiculopathy: Plan: Lumbar disc herniation with radiculopathy Disc bulge and herniation, L4-L5 Pt with recent MRI lumbar spine done on 09/05/23 in [facility]:-mild to moderate multilevel DDD. L4 to L5 disc bulge, large disc herniation on L with high grade canal stenosis. mild R and moderate L foraminal narrowing. no suggestion of bone marrow edema, soft tissue or ligamentous injury --S/P lumbar decompression, fusion surgery by Dr. Drake on 09/15/2023 PT OT as able Continue bowel regimen Pain control Wound care as per orthopedics Needs follow-up with orthopedics on discharge Constipation continue bowel regimen (3) Interstitial lung disease: Plan: Chronic Interstitial thickening --CT Chest: Diffuse subpleural reticulation with mild traction bronchiectasis. 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 No discrete solid nodule to correspond to the finding on chest radiograph of September 12, 2023. This was artifactual. Scattered groundglass opacities. These are likely related to interstitial lung disease although a mild superimposed infectious process could appear similar. No consolidation. Mild dilatation of the central pulmonary arteries which raises the possibility of pulmonary arterial hypertension. -- Currently denies any respiratory symptoms --Recommend outpatient follow-up with pulmonology Plan Depression Continue fluoxetine Psychiatry consulted as per patient's request DVT Px: Lovenox SQ--Held for surgery Transition to Eliquis once cleared by orthopedics CODE STATUS DNR/DNI Admission and Anticipated Discharge Date Admission Date: September 12, 2023 Subjective Patient is seen and examined at bedside Reports back pain at surgical site Denies any chest pain, dyspnea, dizziness, nausea, vomiting Discussed with psychiatry today Review of Systems Review of Systems: All systems reviewed & are unremarkable except as noted in Subjective Physical Exam Physical Exam: Physical Exam: Vitals signs as noted above General Appearance:Moderately built and nourished, no apparent distress Head: normocephalic, Atraumatic Eyes: normal inspection, EOMI Neck: supple, Trachea midline Respiratory/Chest: Decreased breath sounds, CTA, No accessory muscle use Cardiovascular: S1, S2, No murmur Abdomen/GI:Soft, Non tender, Bowel sounds present Extremities/Musculoskeletal:normal inspection, R foot edema Neurologic/Psych:AAOX3, grossly no focal neurological deficits Skin: normal color, warm Results & Data Results & Data Vital Signs (Past 12 Hours) Vital Signs Temp Pulse Pulse Resp BP Pulse Ox O2 Del Method 09/16/23 14:23 36.6 C 59 L 16 117/73 99 Nasal Cannula 09/16/23 13:50 36.5 C 70 18 120/70 96 Room Air 09/16/23 08:19 36.6 C 70 16 118/70 100 Nasal Cannula 09/16/23 07:20 Nasal Cannula O2 Flow Rate 09/16/23 14:23 2 09/16/23 13:50 09/16/23 08:19 2 09/16/23 07:20 2 Laboratory Results Short CBC 09/16/23 Range/Units 06:18 WBC 9.49 (4.8-10.8) K/ul Hgb 11.1 L D (12.0-16.0) g/dl Hct 33.6 L (37.0-47.0) % Plt Count 322 (130-400) K/uL BMP 09/16/23 06:18 Sodium 140 Potassium 3.9 Chloride 102 Carbon Dioxide 34 H BUN 10 Creatinine 0.59 L Glucose 114 H Calcium 9.1
[2023-09-17 07:30] LABS: Hematocrit (blood only) 33.9 % (37.0-47.0); Mean Corpuscular Hemoglobin 30.5 pg (25.0-34.0); Mean Corpuscular Hgb Conc 32.4 g/dL (32.0-36.0); Mean Corpuscular Volume 93.9 fL (80.0-100.0); Mean Platelet Volume 10.7 fL (9.4-12.4); Platelet Count 344 K/uL (130-400); RDW Coefficient of Variation 12.3 % (11.5-14.5); RDW Standard Deviation 42.5 fL (36.4-46.3); Red Blood Count 3.61 M/uL (4.20-5.40); White Blood Count 10.26 K/ul (4.8-10.8)
[2023-09-17 08:33] LABS: Calcium 9.5 mg/dl (8.6-10.3); Potassium 3.6 mmol/L (3.5-5.1)
[2023-09-17 08:38] LABS: BUN Creatinine Ratio 22.6 (10-20); Creatinine Clr Calc Pharmacy 89.7 ml/min; Est GFR (African American) 106.9 ml/min; Est GFR (Non-African American) 92.2 ml/min
[2023-09-17] MEDS: ACETAMINOPHEN 500 MG TAB PO PRN (08:38)
--- NOTE | 2023-09-17 10:16 | Orthopedic Progress Note ---
Date of Service September 17, 2023 Assessment & Plan (1) Lumbar disc herniation with radiculopathy: Plan: At this time continue physical therapy monitor CATE output hopefully discharge home the next few days. Admission and Anticipated Discharge Date Admission Date: September 12, 2023 Subjective Patient complaining of back pain only. Leg pain improved. She is tolerating physical therapy. Physical Exam Physical Exam: On exam patient is currently in bed. She has good strength testing. Appears comfortable. Results & Data Vital Signs (Past 12 Hours) Vital Signs Temp Pulse Resp BP Pulse Ox O2 Del Method O2 Flow Rate 09/17/23 08:30 61 99 Nasal Cannula 2 09/17/23 06:58 36.7 C 59 L 16 124/78 100 Nasal Cannula 2 09/16/23 23:37 Nasal Cannula 2
--- NOTE | 2023-09-17 17:53 | Hospitalist Progress Note ---
Date of Service September 17, 2023 Assessment & Plan (1) Atrial fibrillation, new onset: Plan: Pt is a 77yoF with PMHx significant for hypothyroidism, HLD, esophagitis, CKD, Vit D deficiency, Osteoporosis, Atopic dermatitis who presented for lower back pain but was found to be in rapid a fib. Paroxysmal Atrial Fibrillation with RVR TSH wnl --ECHO: Left ventricle is normal in size. Moderate concentric LVH. Left ventricle wall motion is normal. EF 55 to 60%. Grade 1 diastolic dysfunction. Aortic valve sclerosis mild, without significant stenosis. Left atrial size is normal. Received 2 doses of diltiazem 10mg with conversion to sinus rhythm in the ED Remained in sinus rhythm Some PVCs on monitor Appreciate cardiology input and recommendation Started on metoprolol succinate 25 mg daily Will start on Eliquis once cleared by orthopedics--likely tomorrow Appreciate cardiology input Needs follow-up with cardiology on discharge Continue current manage (2) Lumbar radiculopathy: Plan: Lumbar disc herniation with radiculopathy Disc bulge and herniation, L4-L5 Pt with recent MRI lumbar spine done on 09/05/23 in [facility]:-mild to moderate multilevel DDD. L4 to L5 disc bulge, large disc herniation on L with high grade canal stenosis. mild R and moderate L foraminal narrowing. no suggestion of bone marrow edema, soft tissue or ligamentous injury --S/P lumbar decompression, fusion surgery by Dr. Drake on 09/15/2023 PT OT as able Continue bowel regimen Pain control Wound care as per orthopedics Needs follow-up with orthopedics on discharge Constipation continue bowel regimen May need enema if po medications unsuccessful (3) Interstitial lung disease: Plan: Chronic Interstitial thickening --CT Chest: Diffuse subpleural reticulation with mild traction bronchiectasis. 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 No discrete solid nodule to correspond to the finding on chest radiograph of September 12, 2023. This was artifactual. Scattered groundglass opacities. These are likely related to interstitial lung disease although a mild superimposed infectious process could appear similar. No consolidation. Mild dilatation of the central pulmonary arteries which raises the possibility of pulmonary arterial hypertension. -- Currently denies any respiratory symptoms --Recommend outpatient follow-up with pulmonology Plan Depression Continue fluoxetine Psychiatry consulted as per patient's request DVT Px: Lovenox SQ--Held for surgery Transition to Eliquis likely tomorrow CODE STATUS DNR/DNI Admission and Anticipated Discharge Date Admission Date: September 12, 2023 Subjective Patient is seen and examined at bedside Reports constipation Back pain intermittently worsens Discussed with orthopedics today leg pain much improved Denies any chest pain, dyspnea, dizziness, nausea, vomiting Review of Systems Review of Systems: All systems reviewed & are unremarkable except as noted in Subjective Physical Exam Physical Exam: Physical Exam: Vitals signs as noted above General Appearance:Moderately built and nourished, no apparent distress Head: normocephalic, Atraumatic Eyes: normal inspection, EOMI Neck: supple, Trachea midline Respiratory/Chest: Decreased breath sounds, CTA, No accessory muscle use Cardiovascular: S1, S2, No murmur Abdomen/GI:Soft, Non tender, Bowel sounds present Extremities/Musculoskeletal:normal inspection, R foot edema Neurologic/Psych:AAOX3, grossly no focal neurological deficits Skin: normal color, warm Results & Data Results & Data Vital Signs (Past 12 Hours) Vital Signs Temp Pulse Resp BP Pulse Ox O2 Del Method O2 Flow Rate 09/17/23 15:39 150/75 H 09/17/23 14:51 36.8 C 73 16 170/75 H 95 Room Air 09/17/23 10:31 60 92 Room Air 09/17/23 08:30 61 99 Nasal Cannula 2 09/17/23 06:58 36.7 C 59 L 16 124/78 100 Nasal Cannula 2 Laboratory Results Short CBC 09/17/23 Range/Units 06:29 WBC 10.26 (4.8-10.8) K/ul Hgb 11.0 L (12.0-16.0) g/dl Hct 33.9 L (37.0-47.0) % Plt Count 344 (130-400) K/uL BMP 09/17/23 06:29 Sodium 139 Potassium 3.6 Chloride 100 Carbon Dioxide 35 H BUN 12 Creatinine 0.53 L Glucose 111 H Calcium 9.5
[2023-09-18 06:51] LABS: Hematocrit (blood only) 33.5 % (37.0-47.0); Mean Corpuscular Hemoglobin 30.4 pg (25.0-34.0); Mean Corpuscular Hgb Conc 32.8 g/dL (32.0-36.0); Mean Corpuscular Volume 92.5 fL (80.0-100.0); Mean Platelet Volume 10.4 fL (9.4-12.4); Platelet Count 336 K/uL (130-400); RDW Coefficient of Variation 12.2 % (11.5-14.5); RDW Standard Deviation 41.5 fL (36.4-46.3); Red Blood Count 3.62 M/uL (4.20-5.40); White Blood Count 7.97 K/ul (4.8-10.8)
[2023-09-18 07:51] LABS: BUN Creatinine Ratio 22.2 (10-20); Calcium 9.6 mg/dl (8.6-10.3); Creatinine Clr Calc Pharmacy 75.5 ml/min; Est GFR (Non-African American) 87.1 ml/min; Potassium 3.7 mmol/L (3.5-5.1)
--- NOTE | 2023-09-18 10:45 | Orthopedic Progress Note ---
Date of Service September 18, 2023 Assessment & Plan (1) Lumbar disc herniation with radiculopathy: Plan Patient will continue with ambulation as tolerated. Discontinue her drain today. Most likely discharge home today. Admission and Anticipated Discharge Date Admission Date: September 12, 2023 Subjective Back pain improving. Leg pain improved she is ambulating well. Physical Exam Physical Exam: Patient is comfortable. She is currently in bed. Is good strength testing. Results & Data Vital Signs (Past 12 Hours) Vital Signs Temp Pulse Resp BP Pulse Ox O2 Del Method O2 Flow Rate 09/18/23 07:20 Room Air 09/18/23 06:57 36.7 C 60 16 167/83 H 96 Nasal Cannula 1
[2023-09-18] MEDS: APIXABAN 5 MG TABLET PO SCH (10:47)
--- NOTE | 2023-09-18 12:07 | Hospitalist Progress Note ---
Date of Service September 18, 2023 Assessment & Plan (1) Atrial fibrillation, new onset: Plan: Pt is a 77yoF with PMHx significant for hypothyroidism, HLD, esophagitis, CKD, Vit D deficiency, Osteoporosis, Atopic dermatitis who presented for lower back pain but was found to be in rapid a fib. Paroxysmal Atrial Fibrillation with RVR TSH wnl --ECHO: Left ventricle is normal in size. Moderate concentric LVH. Left ventricle wall motion is normal. EF 55 to 60%. Grade 1 diastolic dysfunction. Aortic valve sclerosis mild, without significant stenosis. Left atrial size is normal. Received 2 doses of diltiazem 10mg with conversion to sinus rhythm in the ED Remained in sinus rhythm Some PVCs on monitor Appreciate cardiology input and recommendation Continue metoprolol succinate 25 mg daily Started on Eliquis Appreciate cardiology input Needs follow-up with cardiology on discharge Plan to be discharged home today (2) Lumbar radiculopathy: Plan: Lumbar disc herniation with radiculopathy Disc bulge and herniation, L4-L5 Pt with recent MRI lumbar spine done on 09/05/23 in [facility]:-mild to moderate multilevel DDD. L4 to L5 disc bulge, large disc herniation on L with high grade canal stenosis. mild R and moderate L foraminal narrowing. no suggestion of bone marrow edema, soft tissue or ligamentous injury --S/P lumbar decompression, fusion surgery by Dr. Drake on 09/15/2023 PT OT as able Continue bowel regimen Pain control Wound care as per orthopedics Needs follow-up with orthopedics on discharge Constipation continue bowel regimen (3) Interstitial lung disease: Plan: Chronic Interstitial thickening --CT Chest: Diffuse subpleural reticulation with mild traction bronchiectasis. 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 No discrete solid nodule to correspond to the finding on chest radiograph of September 12, 2023. This was artifactual. Scattered groundglass opacities. These are likely related to interstitial lung disease although a mild superimposed infectious process could appear similar. No consolidation. Mild dilatation of the central pulmonary arteries which raises the possibility of pulmonary arterial hypertension. -- Currently denies any respiratory symptoms --Recommend outpatient follow-up with pulmonology Plan Depression Continue fluoxetine Psychiatry consulted as per patient's request DVT Px: Eliquis CODE STATUS DNR/DNI Admission and Anticipated Discharge Date Admission Date: September 12, 2023 Subjective Patient is seen and examined at bedside Doing better today Back pain improving No new complaints Denies any chest pain, dyspnea, dizziness, nausea, vomiting Plan to be discharged home Review of Systems Review of Systems: All systems reviewed & are unremarkable except as noted in Subjective Physical Exam Physical Exam: Physical Exam: Vitals signs as noted above General Appearance:Moderately built and nourished, no apparent distress Head: normocephalic, Atraumatic Eyes: normal inspection, EOMI Neck: supple, Trachea midline Respiratory/Chest: Decreased breath sounds, CTA, No accessory muscle use Cardiovascular: S1, S2, No murmur Abdomen/GI:Soft, Non tender, Bowel sounds present Extremities/Musculoskeletal:normal inspection, R foot edema Neurologic/Psych:AAOX3, grossly no focal neurological deficits Skin: normal color, warm Results & Data Results & Data Vital Signs (Past 12 Hours) Vital Signs Temp Pulse Resp BP Pulse Ox O2 Del Method O2 Flow Rate 09/18/23 07:20 Room Air 09/18/23 06:57 36.7 C 60 16 167/83 H 96 Nasal Cannula 1 Laboratory Results Short CBC 09/18/23 Range/Units 06:05 WBC 7.97 (4.8-10.8) K/ul Hgb 11.0 L (12.0-16.0) g/dl Hct 33.5 L (37.0-47.0) % Plt Count 336 (130-400) K/uL BMP 09/18/23 06:05 Sodium 140 Potassium 3.7 Chloride 99 Carbon Dioxide 37 H BUN 14 Creatinine 0.63 Glucose 97 Calcium 9.6
--- NOTE | 2023-09-18 12:20 | Discharge Summary ---
Date of Service September 18, 2023 Admission HPI Per Admitting Provider Pt is a 77yoF with PMHx significant for hypothyroidism, HLD, esophagitis, CKD, Vit D deficiency, Osteoporosis, Atopic dermatitis who presented for lower back pain but was found to be in rapid a fib. Pt states that she came in because of intractable back pain. States that she is being worked up as outpatient for this with a recent MRI of the spine. However did not feel like her pain was being controlled so she presented to the ED for further evaluation. States that she was told that she would be receiving oxycodone to help with the pain. In the ED, she was noted to be in rapid a fib on the media monitor with HR as high as the 170s. She states she did feel a "bump-bump" in her chest. Has been having those sensations off and on for about 2 years and feels like she can make it stop by putting her arm around her chest. States she has never discussed this with her primary care provider. Has been getting SOB occasionally as well though not necessarily related. Admission Exam Per Admitting Provider General: Alert, oriented. No acute distress Psych: Appropriate mood and affect Neuro: No gross deficits while laying in bed HEENT: NC/AT CV: RRR Resp: Breath sounds coarse with wheezing bilaterally, no increased effort of breathing. Abdomen: Soft, nontender, nondistended Extremities: edema in lower extremities bilaterally. Principal Diagnosis Lumbar disc herniation with radiculopathy Paroxysmal Atrial Fibrillation with RVR Chronic Interstitial thickening Discharge Data Allergies Allergy/AdvReac Type Severity Reaction Status Date / Time sertraline Allergy Intermediate RASH Verified 09/12/23 17:43 prednisone AdvReac Unknown MADE PT Verified 09/12/23 17:43 FEEL ILL Consultations 09/12/23 20:02 ED Decision to Admit Stat 09/12/23 21:38 Consult Orthopedic Spine Surgery Routine 09/13/23 09:17 Consult Cardiology Routine 09/16/23 13:51 Consult Behavioral Health Liaison Routine Procedures Performed Operation Date: 09/15/23 07:45 Actual Procedures p L4-L5 Decompression and Fusion, Spinal Cord Monitoring(Not Applicable) - Sai Drake, Ordered Studies 09/13/23 08:00 CT chest diagnostic wo con Routine 09/15/23 07:45 FL lumbar spine 2-3V Routine Laboratory Results WBC 7.97 K/ul (4.8-10.8) 06/02/24 06:05 RBC 3.62 M/uL (4.20-5.40) L 09/18/23 06:05 Hgb 11.0 g/dl (12.0-16.0) L 09/18/23 06:05 Hct 33.5 % (37.0-47.0) L 09/18/23 06:05 MCV 92.5 fL (80.0-100.0) 09/18/23 06:05 MCH 30.4 pg (25.0-34.0) 09/18/23 06:05 MCHC 32.8 g/dL (32.0-36.0) 09/18/23 06:05 RDW Std Deviation 41.5 fL (36.4-46.3) 09/18/23 06:05 RDW Coeff of Nina 12.2 % (11.5-14.5) 09/18/23 06:05 Plt Count 336 K/uL (130-400) 09/18/23 06:05 MPV 10.4 fL (9.4-12.4) 09/18/23 06:05 Immature Gran % (Auto) 0.3 % 09/14/23 06:34 Neut % (Auto) 63.3 % 09/14/23 06:34 Lymph % (Auto) 21.0 % 09/14/23 06:34 [place] % (Auto) 6.3 % 09/14/23 06:34 Eos % (Auto) 8.4 % 09/14/23 06:34 Baso % (Auto) 0.7 % 09/14/23 06:34 Neut # (Auto) 4.22 K/uL (1.40-6.50) 09/14/23 06:34 Lymph # (Auto) 1.40 K/uL (1.20-3.40) 09/14/23 06:34 [place] # (Auto) 0.42 K/uL (0.11-0.59) 09/14/23 06:34 Eos # (Auto) 0.56 K/uL (0.00-0.50) H 09/14/23 06:34 Baso # (Auto) 0.05 K/uL (0.00-0.20) 09/14/23 06:34 Immature Gran # (Auto) 0.02 K/uL (0.01-0.20) 09/14/23 06:34 PT 10.4 Seconds (9.0-12.0) 09/12/23 16:09 INR 1.0 (0.9-1.1) 09/12/23 16:09 APTT 28 Seconds (21-31) 09/12/23 16:09 PTT Ratio 1.0 09/12/23 16:09 Sodium 140 mmol/L (136-145) 09/18/23 06:05 Potassium 3.7 mmol/L (3.5-5.1) 09/18/23 06:05 Chloride 99 mmol/L (98-107) 09/18/23 06:05 Carbon Dioxide 37 mmol/L (21-32) H 09/18/23 06:05 Anion Gap 4 (3-11) 09/18/23 06:05 BUN 14 mg/dl (6-23) 09/18/23 06:05 Creatinine 0.63 mg/dl (0.6-1.2) 09/18/23 06:05 Est Cr Clr Drug Dosing 75.5 ml/min 09/18/23 06:05 Est GFR ( Amer) 101.0 ml/min 09/18/23 06:05 Est GFR (Non-Af Amer) 87.1 ml/min 09/18/23 06:05 BUN/Creatinine Ratio 22.2 (10-20) H 09/18/23 06:05 Glucose 97 mg/dl (70-99(Fasting)) 09/18/23 06:05 Calcium 9.6 mg/dl (8.6-10.3) 09/18/23 06:05 Phosphorus 5.2 mg/dl (2.5-4.9) H 09/13/23 06:02 Magnesium 2.0 mg/dl (1.7-2.4) 09/14/23 06:34 Total Bilirubin 0.3 mg/dl (0.2-1.0) 09/12/23 16:09 AST 27 U/L (13-39) 09/12/23 16:09 ALT 25 U/L (7-52) 09/12/23 16:09 Alkaline Phosphatase 104 U/L (34-104) 09/12/23 16:09 Troponin I High Sens 6.9 pg/ml (0-14) 09/12/23 16:09 Total Protein 7.5 gm/dl (6.0-8.3) 09/12/23 16:09 Albumin 4.4 gm/dl (3.4-5.0) 09/12/23 16:09 Globulin 3.1 gm/dl (2.5-4.0) 09/12/23 16:09 Albumin/Globulin Ratio 1.4 (0.9-2) 09/12/23 16:09 TSH 3.366 uIu/ml (0.300-4.500) 09/12/23 16:09 Urine Color Yellow 09/12/23 19:26 Urine Appearance Clear (Clear) 09/12/23 19:26 Urine pH 8.0 (4.5-7.5) H 09/12/23 19:26 Ur Specific [place] 1.007 (1.000-1.030) 09/12/23 19:26 Urine Protein Negative (Negative) 09/12/23 19:26 Urine Glucose (UA) Negative (Negative) 09/12/23 19:26 Urine Ketones 1+ (Negative) H 09/12/23 19:26 Urine Blood 1+ (Negative) H 09/12/23 19:26 Urine Nitrite Negative (Negative) 09/12/23 19:26 Urine Bilirubin Negative (Negative) 09/12/23 19:26 Urine Urobilinogen Negative (Negative) 09/12/23 19:26 Ur Leukocyte Esterase Trace (Negative) H 09/12/23 19:26 Urine WBC (Auto) 0-5 /hpf (0-5) 09/12/23 19:26 Urine RBC (Auto) 3-5 /hpf (0-2) H 09/12/23 19:26 U Hyaline Cast (Auto) 0-2 /lpf (0-2) 09/12/23 19:26 U Epithel Cells (Auto) 0-2 /hpf (0-2) 09/12/23 19:26 Urine Bacteria (Auto) None Seen (None Seen) 09/12/23 19:26 Blood Type O Positive 09/15/23 06:34 Antibody Screen NEGATIVE 09/15/23 06:34 Impressions Chest X-Ray 09/12/23 16:02 XR chest 1V portable CLINICAL HISTORY: Dysrhythmia. COMPARISON STUDY: Chest radiograph June 27, 2023. FINDINGS: Lung volumes are normal. There is no pneumothorax or pleural effusion. Cardiomegaly is unchanged. Interstitial thickening is similar to prior exam. No superimposed consolidation is identified. 1.4 cm nodular right upper lung density is present. IMPRESSION: 1. 1.4 cm right upper lung nodular density. This likely reflects summation artifact. A small focus of pneumonia or a pulmonary nodule are considered less likely however a follow-up nonemergent PA and lateral chest radiographs are recommended. 2. Chronic interstitial thickening. ACT 112: Negative or not required by law. Electronically signed by: Adama Muir M.D. 09/12/2023 4:[address] 09/13/23 08:00 CT OF THE CHEST WITHOUT IV CONTRAST CLINICAL HISTORY: f/u chest xray, chronic intersitial thickening COMPARISON STUDY: Chest radiographs June 27, 2023 and September 12, 2023. CT DOSE: 611.52 mGy.cm TECHNIQUE: Axial images of the chest were obtained without IV contrast. Images were reviewed in the axial, sagittal, and coronal planes. IV contrast was not administered for this examination. Automated exposure control was utilized for the study. A dose lowering technique was utilized adhering to the principles of ALARA. FINDINGS: Prominent mediastinal lymph nodes measure up to 9 mm in short axis diameter. The heart is mildly enlarged. There is mild dilatation of the central pulmonary arteries. No pneumothorax or pleural effusion is present. Note is made of subpleural reticulation throughout the lungs. Mild traction bronchiectasis is present. There is mild subpleural cystic change without definitive honeycombing. A few mild right upper lobe groundglass opacities are present. Additional scattered groundglass opacities are present. No solid nodules are identified. Central airways are patent. Compression fracture of the superior endplate of L1 is new since CT of June 27, 2023. There is 40% loss of vertebral body height. Mild to moderate compression fractures of the superior endplates of T5, T8 and T9 are present. IMPRESSION: 1. Diffuse subpleural reticulation with mild traction bronchiectasis. 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 2. No discrete solid nodule to correspond to the finding on chest radiograph of September 12, 2023. This was artifactual. 3. Scattered groundglass opacities. These are likely related to interstitial lung disease although a mild superimposed infectious process could appear similar. No consolidation. 4. Mild dilatation of the central pulmonary arteries which raises the possibility of pulmonary arterial hypertension. ACT 112: Negative or not required by law. Electronically signed by: Adama Muir M.D. 09/13/2023 1:18 PM Lumbar Spine X-Ray 09/15/23 07:45 FL lumbar spine 2-3V CLINICAL HISTORY: L4-L5 DECOMPRESSION AND FUSION COMPARISON STUDY: Lumbar spine CT June 27, 2023. FLUOROSCOPY TIME: 14 seconds. Ka,r : 12.10 mGy FLUOROSCOPIC IMAGES: 2 FINDINGS: Fluoroscopy was provided during L4-L5 decompression, discectomy and bilateral pedicle screw fusion. Hardware is intact. No unexpected radiopaque foreign bodies are present. IMPRESSION: Fluoroscopy provided during L4-L5 decompression, discectomy and bilateral pedicle screw fusion. ACT 112: Negative or not required by law. Electronically signed by: Adama Muir M.D. 09/15/2023 10:03 AM Hospital Course (1) Atrial fibrillation, new onset: Pt is a 77yoF with PMHx significant for hypothyroidism, HLD, esophagitis, CKD, Vit D deficiency, Osteoporosis, Atopic dermatitis who presented for lower back pain but was found to be in rapid a fib. Paroxysmal Atrial Fibrillation with RVR TSH wnl --ECHO: Left ventricle is normal in size. Moderate concentric LVH. Left ventricle wall motion is normal. EF 55 to 60%. Grade 1 diastolic dysfunction. Aortic valve sclerosis mild, without significant stenosis. Left atrial size is normal. Received 2 doses of diltiazem 10mg with conversion to sinus rhythm in the ED Remained in sinus rhythm Some PVCs on monitor Appreciate cardiology input and recommendation Continue metoprolol succinate 25 mg daily Started on Eliquis Appreciate cardiology input Needs follow-up with cardiology on discharge Plan to be discharged home today (2) Lumbar radiculopathy: Lumbar disc herniation with radiculopathy Disc bulge and herniation, L4-L5 Pt with recent MRI lumbar spine done on 09/05/23 in [facility]:-mild to moderate multilevel DDD. L4 to L5 disc bulge, large disc herniation on L with high grade canal stenosis. mild R and moderate L foraminal narrowing. no suggestion of bone marrow edema, soft tissue or ligamentous injury --S/P lumbar decompression, fusion surgery by Dr. Drake on 09/15/2023 PT OT as able Continue bowel regimen Pain control Wound care as per orthopedics Needs follow-up with orthopedics on discharge Constipation continue bowel regimen (3) Interstitial lung disease: Chronic Interstitial thickening --CT Chest: Diffuse subpleural reticulation with mild traction bronchiectasis. 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 No discrete solid nodule to correspond to the finding on chest radiograph of September 12, 2023. This was artifactual. Scattered groundglass opacities. These are likely related to interstitial lung disease although a mild superimposed infectious process could appear similar. No consolidation. Mild dilatation of the central pulmonary arteries which raises the possibility of pulmonary arterial hypertension. -- Currently denies any respiratory symptoms --Recommend outpatient follow-up with pulmonology Plan Depression Continue fluoxetine Psychiatry consulted as per patient's request DVT Px: Eliquis CODE STATUS DNR/DNI Total Time Total Time Spent Total Time Spent (In Minutes): 58 minutes Discharge Plan Discharge Items Patient Disposition: Home - Self-Care Reason For Visit: A FIB WITH RVR Discharge Diagnosis: Lumbar disc herniation with radiculopathy Paroxysmal Atrial Fibrillation with RVR Chronic Interstitial thickening Activity: As commented below Non-emergency contact: Primary Care Provider, Surgeon and Information And Referral Director Call non-emergency contact if: you have any medication questions Follow-up/Referrals: Radha Patel MD [Primary Care Provider] - (Date & Time 09/20/2023 10:20 AM Provider Radha Infante MD Department Family Medicine [facility] ) Diet: Regular Addtl Attending Provider Instructions: ACTIVITY RECOMMENDATIONS: SELF CARE INSTRUCTIONS AFTER THORACIC/LUMBAR FUSIONS 1. You may walk to your tolerance. It is good exercise for your legs and back. Expect some back and intermittent leg aches and pains. 2. You may perform "counter-top" level activities (make a sandwich, maya with a project, etc.). 3. No bending or lifting of more than 10 pounds or back twisting of any nature (roll like a log when turning in bed). 4. You may ride in a car for 20-30 minutes at a time. No driving until after your first visit with your doctor. 5. Frequent changes of position and restricting sitting to 30 minutes at a time will help limit the amount of back spasms and stiffness you may experience. 6. You may discontinue the use of ambulatory aids (cane, crutches, etc.) once your strength and confidence allow. 7. You may packing and shipping clerk the shower and let water strike your incision when you arrive home at least once daily. Do not take a tub bath, sit in a hot tub or go into a swimming pool until after your first recheck in the office. SPECIAL CARE INSTRUCTIONS: VERY IMPORTANT TO READ AND REVIEW A. Your surgical incision has been closed with a cosmetic suture under the skin that will dissolve in about 6 weeks. In 14 days, you can use a pair of clean scissors and cut the suture that is left outside of the skin at the ends of your incision. 1. The small skin tapes can be removed 7 days after surgery if they have not fallen off by that point. 2. You may keep the wound open to air as much as possible to promote healing after post-op day number 5 unless told otherwise by your doctor. 3. If you think the wound looks like it is becoming infected (redness or worsening drainage) and/or you are experiencing fever, chill or worsening back pain and muscle spasms, contact the office so that we may evaluate you as soon as possible. B. Complications are uncommon, but please contact us if you have any signs or symptoms of: 1. wound infection (fever higher than 102.5 degrees F, redness, separation of wound, drainage, or increasing pain from the incision) 2. blood clots in legs (pain, swelling, redness and warmth in legs) 3. urinary tract infection (fever higher than 102.5 degrees F, burning upon urination or increased frequency of urination) 4. nerve problems (inability to walk on your toes or heels, numbness, loss of bowel or bladder control) 5. any other symptoms that concern you C. Please call the office at if you have any concerns or questions about your operation or recovery. D. No smoking! Smoking drastically decreases the chance of a solid fusion. E. Do not take any anti-inflammatory medications (Indocin, Advil, Motrin, Aspirin, Naprosyn, etc.) as these may inhibit the chance of a solid fusion. Tylenol is okay to take for pain. MANAGING PAIN AFTER SPINAL SURGERY 1. Narcotic medication is intended for short-term use and will be provided for surgical pain. Surgical pain usually lasts for a period of 4-6 weeks. Narcotic medication includes Percocet, Vicodin, Darvocet, Tylenol #3 or Lortab. 2. Longer-term pain is more appropriately treated with non-narcotic medication such as Tylenol ES. 3. Muscle spasm is not appropriately treated with narcotics. Muscle relaxers such as Soma, Flexeril or Skelaxin can be used along with Tylenol ES. 4. Remember that we all live with some "aches and pains". This is not unusual or uncommon after an injury or as we get older. a. Back pain is expected and may include muscle spasms for 4 to 6 weeks after surgery. The pain should gradually improve. If the pain worsens for no apparent reason, please contact the office. b. Intermittent leg pain may also be experienced and should not be concerned about unless it worsens for no apparent reason. If so, please contact the office. 5. We will provide appropriate medication within the normal guidelines of their prescribed use. We will also be very cautious and aware of potential abuse and extended duration of patients' medication needs. a. Pain medications are for your comfort and to assist with sleep and rest so that the tissue can heal. They are not provided in order to return to normal activity and should not be used through the day. To do so or worsening pain at night can result from ongoing tissue damage and development of tolerance to the prescribed medicine. 6. Please allow 2-3 days to process refills. Prescriptions will not be mailed but must be picked up at the office. FOLLOW UP VISIT: Keep your scheduled follow-up appointment. Any questions, please call the office at . Addtl Teachers Aide Provider Instructions: Follow-up with your primary care physician Dr. David Dowd in 1 week as advised Follow-up with your director banking Dr. Seals in 4 weeks Follow-up with your orthopedic surgeon Dr. Drake as advised Seek immediate medical attention if your symptoms reoccur or worsen Please take all medications as instructed on discharge list below. Please call if you have any questions or problems. You can reach a [facility] hospitalist on duty at [facility] 24 hours a day by calling [phone] Pending Studies at Discharge: No Stand-Alone Forms: [facility] - Opioid Pain Management, Smoking Cessation Medications and DC Order Prescriptions: New tramadol 50 mg tablet 50 mg PO Q6H PRN (Reason: pain, moderate) Qty: 30 0RF oxycodone 5 mg tablet 5 mg PO Q6H PRN (Reason: pain) Qty: 30 0RF Eliquis 5 mg Tablet 5 mg PO BID Qty: 60 1RF polyethylene glycol 3350 [Miralax] 17 gram Powder In Packet 17 g PO DAILY PRN (Reason: constipation) Qty: 30 0RF metoprolol succinate 25 mg Tablet Extended Release 24 Hr 25 mg PO QAM Qty: 30 1RF Continued fluoxetine 20 mg capsule 20 mg PO QAM atorvastatin 20 mg tablet 20 mg PO QAM valacyclovir 1 gram tablet 1,000 mg PO QAM PRN (Reason: Outbreak) baclofen 10 mg tablet 10 mg PO HS PRN (Reason: Back Pain) hydroxyzine HCl 25 mg tablet 25 mg PO Q6 PRN (Reason: Panic Attack(S)) cholecalciferol (vitamin D3) [Vitamin D3] 50 mcg (2,000 unit) Tablet 50 mcg PO QAM Discharge Orders: Discharge Order (Routine); Ordered 09/18/23 Ordered By: Sai Kovacs/Other Patient Handouts: DVT Post Op Prevention, AFib Dc, AFib Admission Data Admit Date/Time: 09/12/23 19:54 Attending Provider: Devendra Betancourt Admit Provider: Chata Carbone Primary Care Provider: Radha Patel Other Providers: Chata Carbone; Sai Drake; Lyly Wilson; Todd Avendano; Elias Seals; Rodney Joyce; Orlin Olivo; Tim Mahajan; Brittney Jacobs; Gianna Del Valle; Aimee Diggs; Lyly Gentile; Jey Dominique; Po Umaña; Irma Hernandez; Viridiana Flynn; Brunilda Chavez; Arnulfo Ruiz; Jayro Rivas; Marita Babin
== END 2023-09-18 14:00 | disposition home or self-care (01) | DRG 454 ==
LOC: ED 15:38 → SUATTDRO 19:54 → 2S 19:54 → 3E 09-15 11:32